=== PATIENT | female | born 1980 | race American Indian/Alaskan Native ===

== ENCOUNTER 2021-12-23 06:20 | Inpatient (IN) | payer MEDICAID ==
[2021-12-23 08:23] LABS: Basophils % (Auto) 0.1 % (0.0-1.8); Eosinophils % (Auto) 0.2 % (0.0-4.3); Hematocrit 49.5 % (30.3-42.9); Hemoglobin 15.9 gm/dl (10.1-14.3); Lymphocytes # (Auto) 1.5 K/mm3 (1.2-5.4); Lymphocytes % (Auto) 8.3 % (13.4-35.0); Mean Corpuscular HGB Conc 32 % (30-34); Mean Corpuscular Volume 87 fl (79-97); Monocytes # (Auto) 0.8 K/mm3 (0.0-0.8); Monocytes % (Auto) 4.1 % (0.0-7.3); Platelet Count 388 K/mm3 (140-440); Red Blood Count 5.71 M/mm3 (3.65-5.03); Red Cell Distribution Width 15.2 % (13.2-15.2)
[2021-12-23 09:17] LABS: Alanine Aminotransferase 218 units/L (7-56); Albumin 3.8 g/dL (3.9-5); Blood Urea Nitrogen 9 mg/dL (7-17); Hemolysis Index 18
[2021-12-23 09:22] LABS: BUN/Creatinine Ratio 15
[2021-12-23] MEDS ORDERED: SODIUM CHLORIDE 0.9% 1000 ML 1,000 ML IV ONE ×2 (09:27→16:17)
[2021-12-23] MEDS ORDERED: PIPERACILLIN/TAZOBACTAM 3.375 3.375 GM/50 ML BAG IV ONE (09:27)
[2021-12-23] MEDS ORDERED: ONDANSETRON 4 MG/2 ML INJ IV ONE ×2 (09:28→12:25)
[2021-12-23] MEDS ORDERED: MORPHINE 4 MG/1 ML INJ IV ONE (10:13)
--- NOTE | 2021-12-23 10:14 | Emergency Department Report ---
ED Abdominal Pain HPI - General Chief Complaint: Nausea/Vomiting/Diarrhea Stated Complaint: NAUSEA, VOMITING PUI?: No Time Seen by Provider: 12/23/21 08:08 Source: patient, EMS Mode of arrival: Stretcher Limitations: No Limitations - History of Present Illness Initial Comments: Patient is a 41-year-old female that comes to the emergency room with acute onset abdominal pain, nausea and vomiting yesterday. She is 2 weeks . She delivered at [facility]. She has no prior history of gallbladder disease or abdominal pain such as this. Her vaginal delivery was uneventful. She denies fever or chills. She does endorse right upper quadrant pain with nausea and vomiting. No diarrhea or constipation. Dlor-xgn-hhrwjqt medications did not relieve the pain. Patient is obese. She denies any medical history. Is not taking any home medications. Denies alcohol drugs and tobacco. Patient is not diabetic MD Complaint: abdominal pain -: Sudden, days(s) (2) Location: RUQ Migration to: no migration Severity: severe Severity scale (0 -10): 6 Quality: cramping, aching Consistency: constant Improves With: nothing Worsens With: nothing Associated Symptoms: nausea, vomiting - Related Data Allergies Allergy/AdvReac Type Severity Reaction Status Date / Time No Known Allergies Allergy Unverified 12/23/21 06:28 ED Review of Systems ROS: Stated complaint: NAUSEA, VOMITING Other details as noted in HPI Comment: All other systems reviewed and negative ED Past Medical Hx - Past Medical History Previous Medical History?: No - Surgical History Past Surgical History?: No - Family History Family history: no significant - Social History Smoking Status: Never Smoker Substance Use Type: None ED Physical Exam - General Limitations: No Limitations General appearance: alert, in no apparent distress - Head Head exam: Present: atraumatic, normocephalic - Eye Eye exam: Present: normal appearance - ENT ENT exam: Present: mucous membranes moist - Neck Neck exam: Present: normal inspection - Respiratory Respiratory exam: Present: normal lung sounds bilaterally. Absent: respiratory distress - Cardiovascular Cardiovascular Exam: Present: regular rate, normal rhythm. Absent: systolic murmur, diastolic murmur, rubs, gallop - GI/Abdominal GI/Abdominal exam: Present: soft, tenderness, normal bowel sounds - Extremities Exam Extremities exam: Present: normal inspection - Back Exam Back exam: Present: normal inspection - Neurological Exam Neurological exam: Present: alert, oriented X3 - Psychiatric Psychiatric exam: Present: normal affect, normal mood - Skin Skin exam: Present: warm, dry, intact, normal color. Absent: rash ED Course Vital Signs 12/23/21 12/23/21 06:27 10:08 Temperature 98.1 F 98.9 F Pulse Rate 90 92 H Respiratory 16 20 Rate Blood Pressure 160/110 140/80 [Right] O2 Sat by Pulse 98 98 Oximetry ED Medical Decision Making - Lab Data Result diagrams: 12/23/21 08:01 12/23/21 08:01 - Radiology Data Radiology results: report reviewed, image reviewed pancreatitis - Medical Decision Making Vital Signs 12/23/21 12/23/21 06:27 10:08 Temperature 98.1 F 98.9 F Pulse Rate 90 92 H Respiratory 16 20 Rate Blood Pressure 160/110 140/80 [Right] O2 Sat by Pulse 98 98 Oximetry Labs 12/23/21 12/23/21 08:01 08:01 WBC 18.2 H RBC 5.71 H Hgb 15.9 H Hct 49.5 H MCV 87 MCH 28 MCHC 32 RDW 15.2 Plt Count 388 Lymph % (Auto) 8.3 L Mckinley % (Auto) 4.1 Eos % (Auto) 0.2 Baso % (Auto) 0.1 Lymph # (Auto) 1.5 Mckinley # (Auto) 0.8 Eos # (Auto) 0.0 Baso # (Auto) 0.0 Seg Neutrophils % 87.3 H Seg Neutrophils # 15.9 H Sodium 141 Potassium 3.8 Chloride 109.7 H Carbon Dioxide 18 L Anion Gap 17 BUN 9 Creatinine 0.6 Estimated GFR > 60 BUN/Creatinine Ratio 15 Glucose 162 H Calcium 9.0 Total Bilirubin 2.20 H AST 291 H ALT 218 H Alkaline Phosphatase 143 H Total Protein 7.6 Albumin 3.8 L Albumin/Globulin Ratio 1.0 Lipase 4[address] Olsen. He is requesting an ultrasound. GEN surge has been consulted. Patient has been updated on plan for admission. IV, charge nurse asked to move patient to the main ER given her pending admission. Patient NPO. Vital signs are stable. Patient has received fluid per sepsis work-up. She also received IV Zofran. Patient received morphine and Zofran. She had no relief from that. She was then medicated with 0.5 of IV Dilaudid and 4 additional milligrams of Zofran and is got some pain relief. She is not actively vomiting. [address] Villanueva. She will come and evaluate the patient. - Differential Diagnosis acute abd ro infectious source- g stones/pancreatits/perf ulcer Critical care attestation.: If time is entered above; I have spent that time in minutes in the direct care of this critically ill patient, excluding procedure time. ED Disposition Clinical Impression: Abdominal pain Qualifiers: Abdominal location: right upper quadrant Qualified Code(s): R10.11 - Right upper quadrant pain Disposition: 02 [facility]ORT [facility]M [facility] Is pt being admited?: Yes Does the pt Need Aspirin: No Condition: Stable Referrals: KRISTIAN RITTER MD [Primary Care Provider] - 3-5 Days Time of Disposition: 13:39
[2021-12-23] MEDS ORDERED: HYDROmorphone 0.5 MG/0.5 ML INJ IV ONE ×2 (12:24→16:18)
--- NOTE | 2021-12-23 13:26 | Cat Scan Report ---
CT ABDOMEN AND PELVIS WITH INTRAVENOUS CONTRAST INDICATION / CLINICAL INFORMATION: Severe diffuse abdominal pain. Status post vaginal delivery 2 week s ago. TECHNIQUE: 100 cc Omnipaque [address] scans at this location are performed using CT d ose reduction for ALARA by means of automated exposure control. COMPARISON: None available. FINDINGS: ABDOMEN: There is generalized enlargement and edema throughout the pancreas. There is localized decre ased enhancement of the pancreas near the neck. No pancreatic duct dilatation is seen and I do not id entify a pancreatic mass. There is extensive peripancreatic fluid extending into both anterior parare nal spaces and extending inferiorly. There is also mild ascites. No organized fluid collection is see n. The gallbladder contains tiny gas bubbles anteriorly, probably representing gas-containing gallstones . The gallbladder is contracted. No bile duct dilatation is present. The liver, spleen, adrenal gland s, kidneys and bowel demonstrate no significant abnormality. No adenopathy is present. No acute vascu lar abnormality is seen. The lung bases are clear. PELVIS: There is an enlarged uterus. There is no evidence of an adnexal mass. Moderate pel rosa isela ascites is present. A normal appendix is seen and there is no evidence of diverticulitis. There i s mild diastases of the rectus sheath centered at the umbilicus without focal hernia. No acute osseou s abnormality is seen. IMPRESSION: 1. Moderately severe generalized acute pancreatitis. There is a possible element of necrosis near the pancreatic neck. Extensive peripancreatic fluid extending into both anterior pararenal spaces with a ssociated ascites. 2. Probable tiny gas containing stones floating in the anterior gallbladder. Signer Name: Shar Gannon MD Signed: 12/23/2021 1:22 PM Workstation Name: [id number]
[2021-12-23] MEDS ORDERED: SODIUM CHLORIDE 0.9% 1000 ML IV SOLN IV ONE (13:29)
[2021-12-23 14:45] LABS: INR 0.88 (0.87-1.13)
--- NOTE | 2021-12-23 14:53 | Ultrasound Report ---
US abdomen limited INDICATION: EVAL FOR G STONE- SEE CT COMPARISON: CT from earlier same day. FINDINGS: Pancreas: Not evaluated please see CT. Abdominal aorta: No significant abnormality. IVC: No significant abnormality identified. Liver: No significant abnormality identified. Gallbladder: Gallbladder is contracted and or gallstones. Bile ducts: The common bile duct measures 3 mm. Right Kidney: No significant abnormality. Additional findings: Small volume of free fluid. IMPRESSION: Gallstones are present. Signer Name: Marito Bae MD Signed: 12/23/2021 2:48 PM Workstation Name: [id number]
[2021-12-23 15:51] LABS: Bilirubin,Urine NEG (Negative); Blood,Urine SM (Negative); Color,Urine Amber (Yellow); Mucus,Urine FEW /HPF; Urobilinogen,Urine < 2.0 mg/dL (<2.0)
--- NOTE | 2021-12-23 16:27 | Consultation ---
History of Present Illness Consult date: 12/23/21 Reason for consult: gallstones Chief complaint: pancreatitis - History of present illness History of present illness: 41 yo F with no PMHx who presents to ER with 1 day history of upper abdominal pain starting in the right upper quadrant and radiating to the epigastrium and left upper quadrant. The pain is sharp and started suddenly. It gradually became worse prompting her to come to the emergency room. She has never had pain like this in the past. Pain medications given in the ER have helped with the pain. No exacerbating factors. Not associated with food. The patient also had nonbloody/nonbilious emesis at home. Her nausea is much improved and she has not had any further episodes of emesis. No fevers or chills. She denies alcohol intake. She is 2 weeks. She had a normal vaginal delivery without complications. Past History Past Medical History: No medical history Past Surgical History: No surgical history Social history: no significant social history Family history: hypertension Medications and Allergies Allergies Allergy/AdvReac Type Severity Reaction Status Date / Time No Known Allergies Allergy Unverified 12/23/21 06:28 Active Meds: Active Medications Hydromorphone HCl (Hydromorphone 1 Mg/1 Ml Inj) 0.5 mg IV Q3H PRN PRN Reason: Pain , Severe (7-10) Hydromorphone HCl (Hydromorphone 1 Mg/1 Ml Inj) 0.25 mg IV Q3H PRN PRN Reason: Pain, Moderate (4-6) Hydromorphone HCl (Hydromorphone 0.5 Mg/0.5 Ml Inj) 0.5 mg IV ONCE ONE Stop: 12/23/21 16:19 Sodium Chloride (Nacl 0.9% 1000 Ml) 1,000 mls @ 150 mls/hr IV ONCE ONE Stop: 12/23/21 22:56 Ketorolac Tromethamine (Ketorolac 30 Mg/1 Ml Inj) 30 mg IV Q8H SYMONE Stop: 12/28/21 16:59 Review of Systems All systems: negative (10 point ROS performed and negative except for that listed in HPI) Exam Vital Signs Temp Pulse Resp BP Pulse Ox 98.1 F 90 16 160/110 98 12/23/21 06:27 12/23/21 06:27 12/23/21 06:27 12/23/21 06:27 12/23/21 06:27 Narrative exam: Gen.: Awake, alert, oriented x3. No apparent distress ENT: Trachea midline. No lymphadenopathy. No scleral icterus or conjunctival pallor CV: S1, S2 present Respiratory: No audible wheezes Abdomen: Soft, mildly distended, tenderness to palpation in the right upper quadrant and epigastrium. Positive voluntary guarding. No rebound, rigidity. Extremities: No clubbing, cyanosis, edema Results - Labs 12/23/21 08:01 12/23/21 08:01 Abnormal lab results 12/23/21 12/23/21 12/23/21 Range/Units 08:01 08:01 13:09 WBC 18.2 H (4.5-11.0) K/mm3 RBC 5.71 H (3.65-5.03) M/mm3 Hgb 15.9 H (10.1-14.3) gm/dl Hct 49.5 H (30.3-42.9) % Lymph % (Auto) 8.3 L (13.4-35.0) % Seg Neutrophils % 87.3 H (40.0-70.0) % Seg Neutrophils # 15.9 H (1.8-7.7) K/mm3 Chloride 109.7 H (98-107) mmol/L Carbon Dioxide 18 L (22-30) mmol/L Glucose 162 H (65-100) mg/dL Lactic Acid 4.20 H* (0.7-2.0) mmol/L Total Bilirubin 2.20 H (0.1-1.2) mg/dL AST 291 H (5-40) units/L ALT 218 H (7-56) units/L Alkaline Phosphatase 143 H (35-129) units/L Albumin 3.8 L (3.9-5) g/dL Amylase (27-131) units/L Lipase 4755 H (13-60) units/L Ur Specific Roscoe (1.003-1.030) Urine WBC (Auto) (0.0-6.0) /HPF 12/23/21 12/23/21 Range/Units 13:55 Unknown WBC (4.5-11.0) K/mm3 RBC (3.65-5.03) M/mm3 Hgb (10.1-14.3) gm/dl Hct (30.3-42.9) % Lymph % (Auto) (13.4-35.0) % Seg Neutrophils % (40.0-70.0) % Seg Neutrophils # (1.8-7.7) K/mm3 Chloride (98-107) mmol/L Carbon Dioxide (22-30) mmol/L Glucose (65-100) mg/dL Lactic Acid (0.7-2.0) mmol/L Total Bilirubin (0.1-1.2) mg/dL AST (5-40) units/L ALT (7-56) units/L Alkaline Phosphatase (35-129) units/L Albumin (3.9-5) g/dL Amylase 1335 H (27-131) units/L Lipase (13-60) units/L Ur Specific Roscoe 1.035 H (1.003-1.030) Urine WBC (Auto) 8.0 H (0.0-6.0) /HPF Diabetes panel 12/23/21 Range/Units 08:01 Sodium 141 (137-145) mmol/L Potassium 3.8 (3.6-5.0) mmol/L Chloride 109.7 H (98-107) mmol/L Carbon Dioxide 18 L (22-30) mmol/L BUN 9 (7-17) mg/dL Creatinine 0.6 (0.6-1.2) mg/dL Glucose 162 H (65-100) mg/dL Calcium 9.0 (8.4-10.2) mg/dL AST 291 H (5-40) units/L ALT 218 H (7-56) units/L Alkaline Phosphatase 143 H (35-129) units/L Total Protein 7.6 (6.3-8.2) g/dL Albumin 3.8 L (3.9-5) g/dL Calcium panel 12/23/21 Range/Units 08:01 Calcium 9.0 (8.4-10.2) mg/dL Albumin 3.8 L (3.9-5) g/dL Pituitary panel 12/23/21 Range/Units 08:01 Sodium 141 (137-145) mmol/L Potassium 3.8 (3.6-5.0) mmol/L Chloride 109.7 H (98-107) mmol/L Carbon Dioxide 18 L (22-30) mmol/L BUN 9 (7-17) mg/dL Creatinine 0.6 (0.6-1.2) mg/dL Glucose 162 H (65-100) mg/dL Calcium 9.0 (8.4-10.2) mg/dL Adrenal panel 12/23/21 Range/Units 08:01 Sodium 141 (137-145) mmol/L Potassium 3.8 (3.6-5.0) mmol/L Chloride 109.7 H (98-107) mmol/L Carbon Dioxide 18 L (22-30) mmol/L BUN 9 (7-17) mg/dL Creatinine 0.6 (0.6-1.2) mg/dL Glucose 162 H (65-100) mg/dL Calcium 9.0 (8.4-10.2) mg/dL Total Bilirubin 2.20 H (0.1-1.2) mg/dL AST 291 H (5-40) units/L ALT 218 H (7-56) units/L Alkaline Phosphatase 143 H (35-129) units/L Total Protein 7.6 (6.3-8.2) g/dL Albumin 3.8 L (3.9-5) g/dL - Imaging CT scan - abdomen: report reviewed, image reviewed CT scan - pelvis: report reviewed, image reviewed US - abdomen: report reviewed, image reviewed Assessment and Plan 41-year-old female with 1. Acute pancreatitis likely biliary etiology 2. Gallstones Plan: 1. strict NPO 2. IVF = NS@150cc/hr. So far 1 L bolus of NS given in ER 3. prn pain control 4. prn nausea control 5. DVT ppx 6. CBC, CMP, lipase in am 7. If Bili, LFTs trend up, will need MRCP 8. empiric abx 9. Discussed etiology of pancreatitis, cholelithiasis with patient and at bedside. Explained the pancreatitis will first need to be treated with fluids, bowel rest, pain control. Once pancreatitis has improved, would recommend cholecystectomy. All questions answered. Will follow. Thank you for this consultation. Please call with any questions or concerns. Evaluation and treatment of this patient was during the time of the national and state emergency arising from COVID19 coronavirus pandemic. Treatment and procedures performed meet the current and available best practice and guidelines for patient during the COVID pandemic.
[2021-12-23] MEDS ORDERED: HYDROmorphone 1 MG/1 ML INJ IV PRN ×2 (16:30)
[2021-12-23] MEDS ORDERED: ONDANSETRON 4 MG/2 ML INJ IV PRN ×2 (17:00→21:23)
[2021-12-23] MEDS ORDERED: ACETAMINOPHEN 325 MG TAB PO PRN (21:23)
[2021-12-23] MEDS ORDERED: MAGNESIUM HYDROXIDE (MOM) ORAL LIQD UDC PO PRN (21:23)
--- NOTE | 2021-12-23 21:32 | History and Physical Report ---
History of Present Illness Date of examination: 12/23/21 Date of admission: 12/23/2021 Chief complaint: Abdomoinal Pain History of present illness: 41-year-old -Iranian female presenting in the emergency room today for evaluation of acute onset abdominal pain which started yesterday. Patient is 2 weeks . She denies any fever or chills, no chest pain or shortness of breath, no headache or dizziness and no diaphoresis. She has had associated nausea and vomiting but denies any diarrhea, no constipation no bright red blood per rectum, no hematuria or dysuria. Abdominal pain is more in the right upper abdomen and it has been constant. No known relieving or exacerbating factor. Work-up in the emergency room today, CT of the abdomen and pelvis shows severe generalized acute pancreatitis. There is a possibility of an element of necrosis near the pancreatic neck. Probable tiny gas containing stones floating in the anterior gallbladder. Ultrasound of the abdomen reveals: Gallstones Patient was evaluated by the general surgeon on-call. Recommendation is to make patient n.p.o., IV fluid and analgesic medication. Patient will be followed up closely Past History Past Medical History: No medical history Past Surgical History: No surgical history Social history: no significant social history Family history: hypertension Medications and Allergies Allergies Allergy/AdvReac Type Severity Reaction Status Date / Time No Known Allergies Allergy Unverified 12/23/21 06:28 Active Meds: Active Medications Acetaminophen (Acetaminophen 325 Mg Tab) 650 mg PO Q4H PRN PRN Reason: Pain MILD(1-3)/Fever >100.5/VELIZ Heparin Sodium (Porcine) (Heparin 5,000 Unit/1 Ml Vial) 5,000 unit SUB-Q Q8HR SYMONE Heparin Sodium (Porcine) (Heparin 5,000 Unit/1 Ml Vial) 5,000 unit SUB-Q Q8HR SYMONE Hydromorphone HCl (Hydromorphone 1 Mg/1 Ml Inj) 0.5 mg IV Q3H PRN PRN Reason: Pain , Severe (7-10) Hydromorphone HCl (Hydromorphone 1 Mg/1 Ml Inj) 0.25 mg IV Q3H PRN PRN Reason: Pain, Moderate (4-6) Last Admin: 12/23/21 19:09 Dose: 0.25 mg Sodium Chloride (Nacl 0.9% 1000 Ml) 1,000 mls @ 150 mls/hr IV ONCE ONE Stop: 12/23/21 22:56 Sodium Chloride (Nacl 0.9% 1000 Ml) 1,000 mls @ 125 mls/hr IV DIRECT SYMONE Ketorolac Tromethamine (Ketorolac 30 Mg/1 Ml Inj) 30 mg IV Q8H SYMONE Stop: 12/28/21 16:59 Magnesium Hydroxide (Magnesium Hydroxide (Mom) Oral Liqd Udc) 30 ml PO Q4H PRN PRN Reason: Constipation Morphine Sulfate (Morphine 2 Mg/1 Ml Inj) 2 mg IV Q4H PRN PRN Reason: Pain, Moderate (4-6) Morphine Sulfate (Morphine 4 Mg/1 Ml Inj) 4 mg IV Q4H PRN PRN Reason: Pain , Severe (7-10) Ondansetron HCl (Ondansetron 4 Mg/2 Ml Inj) 4 mg IV Q6H PRN PRN Reason: Nausea And Vomiting Ondansetron HCl (Ondansetron 4 Mg/2 Ml Inj) 4 mg IV Q8H PRN PRN Reason: Nausea And Vomiting Sodium Chloride (Sodium Chloride 0.9% 10 Ml Flush Syringe) 10 ml IV BID SYMONE Sodium Chloride (Sodium Chloride 0.9% 10 Ml Flush Syringe) 10 ml IV PRN PRN PRN Reason: LINE FLUSH Review of Systems Constitutional: no fever, no chills Ears, nose, mouth and throat: no nasal congestion, no sore throat Cardiovascular: no chest pain, no palpitations Respiratory: no cough, no shortness of breath Gastrointestinal: abdominal pain, nausea, vomiting, no BRBPR, no melena Genitourinary Female: no pelvic pain, no flank pain, no dysuria, no hematuria Musculoskeletal: no neck pain, no low back pain Integumentary: no rash, no pruritis Neurological: no headaches, no confusion Psychiatric: no anxiety, no depression Endocrine: no polyphagia, no polydipsia, no polyuria, no nocturia Exam - Constitutional Vitals: Temp Pulse Resp BP Pulse Ox 98.9 F 92 H 20 140/80 98 12/23/21 10:08 12/23/21 10:08 12/23/21 10:08 12/23/21 10:08 12/23/21 10:08 General appearance: Present: no acute distress, well-nourished - EENT Eyes: Present: PERRL, EOM intact. Absent: scleral icterus ENT: hearing intact, clear oral mucosa, dentition normal - Neck Neck: Present: supple, normal ROM - Respiratory Respiratory effort: normal Respiratory: bilateral: CTA - Cardiovascular Rhythm: regular Heart Sounds: Present: S1 & S2. Absent: systolic murmur, diastolic murmur, rub, click - Extremities Extremities: no ischemia, pulses intact, pulses symmetrical, No edema, normal temperature, normal color, Full ROM Peripheral Pulses: within normal limits - Abdominal General gastrointestinal: Present: soft, tender (Moderate tenderness in the right upper quadrant, minimal guarding, no rebound tenderness), non-distended, normal bowel sounds. Absent: mass - Integumentary Integumentary: Present: clear, warm, dry, normal turgor. Absent: rash - Musculoskeletal Musculoskeletal: strength equal bilaterally - Psychiatric Psychiatric: appropriate mood/affect, intact judgment & insight, memory intact, cooperative - Neurologic Neurologic: CNII-XII intact, no focal deficits, moves all extremities Results - Labs CBC & Chem 7: 12/23/21 08:01 12/23/21 08:01 Labs: Abnormal lab results 12/23/21 12/23/21 12/23/21 Range/Units 08:01 08:01 13:09 WBC 18.2 H (4.5-11.0) K/mm3 RBC 5.71 H (3.65-5.03) M/mm3 Hgb 15.9 H (10.1-14.3) gm/dl Hct 49.5 H (30.3-42.9) % Lymph % (Auto) 8.3 L (13.4-35.0) % Seg Neutrophils % 87.3 H (40.0-70.0) % Seg Neutrophils # 15.9 H (1.8-7.7) K/mm3 Chloride 109.7 H (98-107) mmol/L Carbon Dioxide 18 L (22-30) mmol/L Glucose 162 H (65-100) mg/dL Lactic Acid 4.20 H* (0.7-2.0) mmol/L Total Bilirubin 2.20 H (0.1-1.2) mg/dL AST 291 H (5-40) units/L ALT 218 H (7-56) units/L Alkaline Phosphatase 143 H (35-129) units/L Albumin 3.8 L (3.9-5) g/dL Amylase (27-131) units/L Lipase 4755 H (13-60) units/L Ur Specific Jackson (1.003-1.030) Urine WBC (Auto) (0.0-6.0) /HPF 12/23/21 12/23/21 Range/Units 13:55 Unknown WBC (4.5-11.0) K/mm3 RBC (3.65-5.03) M/mm3 Hgb (10.1-14.3) gm/dl Hct (30.3-42.9) % Lymph % (Auto) (13.4-35.0) % Seg Neutrophils % (40.0-70.0) % Seg Neutrophils # (1.8-7.7) K/mm3 Chloride (98-107) mmol/L Carbon Dioxide (22-30) mmol/L Glucose (65-100) mg/dL Lactic Acid (0.7-2.0) mmol/L Total Bilirubin (0.1-1.2) mg/dL AST (5-40) units/L ALT (7-56) units/L Alkaline Phosphatase (35-129) units/L Albumin (3.9-5) g/dL Amylase 1335 H (27-131) units/L Lipase (13-60) units/L Ur Specific Jackson 1.035 H (1.003-1.030) Urine WBC (Auto) 8.0 H (0.0-6.0) /HPF Assessment and Plan Assessment: 1. Abdominal pain 2. Acute pancreatitis 3. Patient is 2 weeks Plan: 1. Patient admitted and placed on IV fluid and IV analgesic medication 2. We will make patient n.p.o. 3. Consult placed to general surgeon for further evaluation and recommendation 4. Patient also placed on empiric IV antibiotics DVT prophylaxis: Subcutaneous heparin CODE STATUS: Full code
[2021-12-23] MEDS ORDERED: HEPARIN 5,000 UNIT/1 ML VIAL SUB-Q SCH (22:00)
[2021-12-23] MEDS: MORPHINE 4 MG/1 ML INJ IV PRN (22:51)
[2021-12-24] MEDS: HEPARIN 5,000 UNIT/1 ML VIAL SUB-Q SCH ×4 (00:09→22:31)
[2021-12-24] MEDS: SODIUM CHLORIDE 0.9% 1000 ML 1,000 ML IV SCH ×2 (00:22→06:39)
[2021-12-24] MEDS ORDERED: PIPERACILLIN/TAZOBACTAM 3.375 3.375 GM/50 ML BAG IV SCH (01:00)
[2021-12-24] MEDS: KETOROLAC 30 MG/1 ML INJ IV SCH ×3 (01:07→17:05)
[2021-12-24] MEDS: MORPHINE 4 MG/1 ML INJ IV PRN ×3 (05:32→22:30)
[2021-12-24 05:35] LABS: Basophils % (Auto) 0.1 % (0.0-1.8); Hematocrit 48.2 % (30.3-42.9); Hemoglobin 15.6 gm/dl (10.1-14.3); Lymphocytes # (Auto) 0.9 K/mm3 (1.2-5.4); Lymphocytes % (Auto) 6.7 % (13.4-35.0); Mean Corpuscular HGB Conc 32 % (30-34); Mean Corpuscular Volume 85 fl (79-97); Monocytes # (Auto) 1.3 K/mm3 (0.0-0.8); Monocytes % (Auto) 9.4 % (0.0-7.3); Platelet Count 273 K/mm3 (140-440); Red Blood Count 5.65 M/mm3 (3.65-5.03); Red Cell Distribution Width 15.3 % (13.2-15.2)
[2021-12-24 05:58] LABS: Alanine Aminotransferase 103 units/L (7-56); Albumin 3.4 g/dL (3.9-5); BUN/Creatinine Ratio 14; Blood Urea Nitrogen 11 mg/dL (7-17); Calcium 7.6 mg/dL (8.4-10.2); Hemolysis Index 26
[2021-12-24] MEDS: PIPERACIL/TAZOBACTA 4.5/NS 100 4.5 GM/100 ML VIAL IV SCH ×2 (09:27→17:04)
--- NOTE | 2021-12-24 12:06 | Progress Note ---
Assessment and Plan 41-year-old female with 1. Acute pancreatitis likely biliary etiology 2. Gallstones Plan: 1. NPO, may have ice chips 2. aggressive IVF 3. prn pain control 4. prn nausea control 5. DVT ppx 6. repeat CBC, CMP, lipase in am - Lipase, Bili, LFTs trending down. 7. empiric abx 8. Discussed etiology of pancreatitis, cholelithiasis with patient and at bedside. Explained the pancreatitis will first need to be treated with fluid s, bowel rest, pain control. Once pancreatitis has improved, would recommend cholecystectomy. All questions answered. Will continue to follow. Thank you for this consultation. Please call with any questions or concerns. Subjective Date of service: 12/24/21 Narrative: Pt seen and examined. c/o upper abdominal pain which is improved since yesterday and well managed with pain medication. NO n/v. Asking for ice chips. No f/c. Objective Vital Signs - 12hr 12/24/21 12/24/21 12/24/21 01:48 04:22 06:30 Temperature 99.0 F Pulse Rate 120 H 120 H Respiratory 20 20 Rate Blood Pressure 171/103 171/103 O2 Sat by Pulse 96 96 Oximetry - General physical appearance Narrative Exam: Gen.: Awake, alert, oriented x3. No apparent distress ENT: Trachea midline. No lymphadenopathy. No scleral icterus or conjunctival pallor CV: S1, S2 present Respiratory: No audible wheezes Abdomen: Soft, mildly distended, tenderness to palpation in the right upper quadrant and epigastrium. No rebound, rigidity, guarding. Extremities: No clubbing, cyanosis, edema - Labs 12/24/21 05:21 12/24/21 05:21 Diabetes panel 12/24/21 Range/Units 05:21 Sodium 143 (137-145) mmol/L Potassium 4.3 (3.6-5.0) mmol/L Chloride 112.3 H (98-107) mmol/L Carbon Dioxide 18 L (22-30) mmol/L BUN 11 (7-17) mg/dL Creatinine 0.8 (0.6-1.2) mg/dL Glucose 166 H (65-100) mg/dL Calcium 7.6 L D (8.4-10.2) mg/dL AST 41 H (5-40) units/L ALT 103 H (7-56) units/L Alkaline Phosphatase 115 (35-129) units/L Total Protein 6.5 (6.3-8.2) g/dL Albumin 3.4 L (3.9-5) g/dL Calcium panel 12/24/21 Range/Units 05:21 Calcium 7.6 L D (8.4-10.2) mg/dL Albumin 3.4 L (3.9-5) g/dL Pituitary panel 12/24/21 Range/Units 05:21 Sodium 143 (137-145) mmol/L Potassium 4.3 (3.6-5.0) mmol/L Chloride 112.3 H (98-107) mmol/L Carbon Dioxide 18 L (22-30) mmol/L BUN 11 (7-17) mg/dL Creatinine 0.8 (0.6-1.2) mg/dL Glucose 166 H (65-100) mg/dL Calcium 7.6 L D (8.4-10.2) mg/dL Adrenal panel 12/24/21 Range/Units 05:21 Sodium 143 (137-145) mmol/L Potassium 4.3 (3.6-5.0) mmol/L Chloride 112.3 H (98-107) mmol/L Carbon Dioxide 18 L (22-30) mmol/L BUN 11 (7-17) mg/dL Creatinine 0.8 (0.6-1.2) mg/dL Glucose 166 H (65-100) mg/dL Calcium 7.6 L D (8.4-10.2) mg/dL Total Bilirubin 1.80 H (0.1-1.2) mg/dL AST 41 H (5-40) units/L ALT 103 H (7-56) units/L Alkaline Phosphatase 115 (35-129) units/L Total Protein 6.5 (6.3-8.2) g/dL Albumin 3.4 L (3.9-5) g/dL
[2021-12-25] MEDS: KETOROLAC 30 MG/1 ML INJ IV SCH ×4 (01:16→17:50)
[2021-12-25] MEDS: PIPERACIL/TAZOBACTA 4.5/NS 100 4.5 GM/100 ML VIAL IV SCH ×3 (01:16→18:36)
[2021-12-25] MEDS: SODIUM CHLORIDE 0.9% 1000 ML 1,000 ML IV SCH ×2 (01:17→09:28)
[2021-12-25] MEDS: MORPHINE 2 MG/1 ML INJ IV PRN ×2 (05:32→16:28)
[2021-12-25] MEDS: HEPARIN 5,000 UNIT/1 ML VIAL SUB-Q SCH ×3 (05:32→21:26)
--- NOTE | 2021-12-25 07:26 | Progress Note ---
Assessment and Plan Assessment and Plan Assessment: 1. Abdominal pain 2. Acute pancreatitis--- improving lipase is decreased from [id number] 3. Patient is 2 weeks Plan: 1. Patient admitted and placed on IV fluid and IV analgesic medication 2. We will make patient n.p.o. 3. General surgery consult appreciated 4. Patient also placed on empiric IV antibiotics DVT prophylaxis: Subcutaneous heparin Subjective Date of service: 12/24/21 Principal diagnosis: Acute pancreatitis Interval history: 41-year-old -[place] female presenting in the emergency room today for evaluation of acute onset abdominal pain which started yesterday. Patient is 2 weeks . She denies any fever or chills, no chest pain or shortness of breath, no headache or dizziness and no diaphoresis. She has had associated nausea and vomiting but denies any diarrhea, no constipation no bright red blood per rectum, no hematuria or dysuria. Abdominal pain is more in the right upper abdomen and it has been constant. No known relieving or exacerbating factor. Work-up in the emergency room today, CT of the abdomen and pelvis shows severe generalized acute pancreatitis. There is a possibility of an element of necrosis near the pancreatic neck. Probable tiny gas containing stones floating in the anterior gallbladder. Ultrasound of the abdomen reveals: Gallstones Patient was evaluated by the general surgeon on-call. Recommendation is to make patient n.p.o., IV fluid and analgesic medication. Patient will be followed up closely 12/24/2021 Symptomatically better Lipase is improved from [id number] Objective - Constitutional Vitals: Vital Signs - 12hr 12/24/21 12/24/21 12/25/21 22:30 23:00 00:00 Temperature Pulse Rate 122 H Respiratory 18 16 Rate Blood Pressure O2 Sat by Pulse 98 Oximetry 12/25/21 12/25/21 12/25/21 00:45 01:00 01:16 Temperature 98.2 F Pulse Rate Respiratory 20 17 17 Rate Blood Pressure 117/73 O2 Sat by Pulse 98 Oximetry 12/25/21 12/25/21 12/25/21 01:46 05:30 05:32 Temperature 98.1 F Pulse Rate 109 H Respiratory 17 17 17 Rate Blood Pressure 143/86 O2 Sat by Pulse 97 Oximetry General appearance: Present: no acute distress, well-nourished - EENT Eyes: PERRL, EOM intact ENT: hearing intact, clear oral mucosa Ears: bilateral: normal - Neck Neck: supple, normal ROM - Respiratory Respiratory effort: normal Respiratory: bilateral: CTA - Breasts Breasts: normal - Cardiovascular Heart rate: 78 Rhythm: regular Heart Sounds: Present: S1 & S2. Absent: gallop, rub Extremities: pulses intact, No edema, normal color, Full ROM - Gastrointestinal General gastrointestinal: Present: soft, non-tender, tender, normal bowel sounds Localized gastrointestinal: tender: diffuse, guarding: diffuse - Genitourinary Female genitourinary: normal - Integumentary Integumentary: clear, warm, dry - Musculoskeletal Musculoskeletal: 1, strength equal bilaterally - Neurologic Neurologic: moves all extremities - Psychiatric Psychiatric: memory intact, appropriate mood/affect, intact judgment & insight - Labs CBC & Chem 7: 12/24/21 05:21 12/24/21 05:21
[2021-12-25 08:21] LABS: Alanine Aminotransferase 53 units/L (7-56); Albumin 2.8 g/dL (3.9-5); BUN/Creatinine Ratio 14; Blood Urea Nitrogen 13 mg/dL (7-17); Calcium 6.7 mg/dL (8.4-10.2); Hemolysis Index 181
[2021-12-25 10:13] LABS: Hemoglobin 12.6 gm/dl (10.1-14.3); Mean Corpuscular HGB Conc 32 % (30-34); Mean Corpuscular Volume 87 fl (79-97); Platelet Count 221 K/mm3 (140-440); Red Blood Count 4.62 M/mm3 (3.65-5.03)
--- NOTE | 2021-12-25 11:30 | Progress Note ---
Assessment and Plan Assessment and plan: 41-year-old female presented through the emergency department with a chief complaint of abdominal pain. CT scan of the abdomen pelvis revealed acute pancreatitis. Acute gallstone pancreatitis Cholelithiasis Abdominal pain 12/25/2021. Continue to keep patient n.p.o. per surgery recommendations. Aggr essive IV fluid hydration. Supportive care with pain and nausea control. Surgery reports that once the pancreatitis has improved, the patient will undergo cholecystectomy. History Interval history: No new issues overnight Hospitalist Physical - Constitutional Vitals: Temp Pulse Resp BP Pulse Ox 98.7 F 99 H 20 150/85 96 12/25/21 10:36 12/25/21 10:36 12/25/21 10:36 12/25/21 10:36 12/25/21 10:36 General appearance: Present: no acute distress, well-nourished - EENT Eyes: Present: PERRL, EOM intact ENT: hearing intact, clear oral mucosa, dentition normal - Neck Neck: Present: supple, normal ROM - Respiratory Respiratory effort: normal Respiratory: bilateral: CTA - Cardiovascular Rhythm: regular Heart Sounds: Present: S1 & S2. Absent: gallop, rub - Extremities Extremities: no ischemia, No edema, Full ROM - Abdominal General gastrointestinal: soft, non-tender, non-distended, normal bowel sounds - Integumentary Integumentary: Present: clear, warm, dry - Neurologic Neurologic: CNII-XII intact, moves all extremities Results - Labs CBC & Chem 7: 12/25/21 Unknown 12/25/21 07:43 Labs: Laboratory Last Values WBC 18.2 K/mm3 (4.5-11.0) H 12/25/21 Unknown RBC 4.62 M/mm3 (3.65-5.03) 12/25/21 Unknown Hgb 12.6 gm/dl (10.1-14.3) D 12/25/21 Unknown Hct 40.0 % (30.3-42.9) D 12/25/21 Unknown MCV 87 fl (79-97) 12/25/21 Unknown MCH 27 pg (28-32) L 12/25/21 Unknown MCHC 32 % (30-34) 12/25/21 Unknown RDW 15.0 % (13.2-15.2) 12/25/21 Unknown Plt Count 221 K/mm3 (140-440) 12/25/21 Unknown Lymph % (Auto) 6.7 % (13.4-35.0) L 12/24/21 05:21 Sac % (Auto) 9.4 % (0.0-7.3) H 12/24/21 05:21 Eos % (Auto) 0.0 % (0.0-4.3) 12/24/21 05:21 Baso % (Auto) 0.1 % (0.0-1.8) 12/24/21 05:21 Lymph # (Auto) 0.9 K/mm3 (1.2-5.4) L 12/24/21 05:21 Sac # (Auto) 1.3 K/mm3 (0.0-0.8) H 12/24/21 05:21 Eos # (Auto) 0.0 K/mm3 (0.0-0.4) 12/24/21 05:21 Baso # (Auto) 0.0 K/mm3 (0.0-0.1) 12/24/21 05:21 Seg Neutrophils % 83.8 % (40.0-70.0) H 12/24/21 05:21 Seg Neutrophils # 11.9 K/mm3 (1.8-7.7) H 12/24/21 05:21 PT 12.9 Sec. (12.2-14.9) 12/23/21 13:55 INR 0.88 (0.87-1.13) 12/23/21 13:55 Sodium 144 mmol/L (137-145) 12/25/21 07:43 Potassium 5.3 mmol/L (3.6-5.0) H D 12/25/21 07:43 Chloride 115.1 mmol/L (98-107) H 12/25/21 07:43 Carbon Dioxide 18 mmol/L (22-30) L 12/25/21 07:43 Anion Gap 16 mmol/L 12/25/21 07:43 BUN 13 mg/dL (7-17) 12/25/21 07:43 Creatinine 0.9 mg/dL (0.6-1.2) 12/25/21 07:43 Estimated GFR > 60 ml/min 12/25/21 07:43 BUN/Creatinine Ratio 14 % 12/25/21 07:43 Glucose 142 mg/dL (65-100) H 12/25/21 07:43 Lactic Acid 4.20 mmol/L (0.7-2.0) H* 12/23/21 13:09 Calcium 6.7 mg/dL (8.4-10.2) L 12/25/21 07:43 Total Bilirubin 1.30 mg/dL (0.1-1.2) H 12/25/21 07:43 AST 44 units/L (5-40) H 12/25/21 07:43 ALT 53 units/L (7-56) 12/25/21 07:43 Alkaline Phosphatase 83 units/L (35-129) 12/25/21 07:43 Total Protein 5.4 g/dL (6.3-8.2) L 12/25/21 07:43 Albumin 2.8 g/dL (3.9-5) L 12/25/21 07:43 Albumin/Globulin Ratio 1.1 % 12/25/21 07:43 Amylase 1154 units/L (27-131) H 12/25/21 07:43 Lipase 876 units/L (13-60) H 12/25/21 07:43 Urine Color Laure (Yellow) 12/23/21 Unknown Urine Turbidity Clear (Clear) 12/23/21 Unknown Urine pH 5.0 (5.0-7.0) 12/23/21 Unknown Ur Specific [place] 1.035 (1.003-1.030) H 12/23/21 Unknown Urine Protein 30 mg/dl mg/dL (Negative) 12/23/21 Unknown Urine Glucose (UA) 50 mg/dL (Negative) 12/23/21 Unknown Urine Ketones Neg mg/dL (Negative) 12/23/21 Unknown Urine Blood Sm (Negative) 12/23/21 Unknown Urine Nitrite Neg (Negative) 12/23/21 Unknown Urine Bilirubin Neg (Negative) 12/23/21 Unknown Urine Urobilinogen < 2.0 mg/dL (<2.0) 12/23/21 Unknown Ur Leukocyte Esterase Tr (Negative) 12/23/21 Unknown Urine WBC (Auto) 8.0 /HPF (0.0-6.0) H 12/23/21 Unknown Urine RBC (Auto) 5.0 /HPF (0.0-6.0) 12/23/21 Unknown U Epithel Cells (Auto) < 1.0 /HPF (0-13.0) 12/23/21 Unknown Urine Mucus Few /HPF 12/23/21 Unknown Microbiology: Microbiology 12/23/21 13:33 Peripheral/Venous Blood Culture - Preliminary NO GROWTH AFTER 24 HOURS 12/23/21 13:09 Peripheral/Venous Blood Culture - Preliminary NO GROWTH AFTER 24 HOURS Active Medications - Current Medications Current Medications: Generic Name Dose Route Start Last Admin Trade Name Freq PRN Reason Stop Dose Admin Acetaminophen 650 mg 12/23/21 21:23 Acetaminophen 325 Mg Tab PO Q4H PRN Pain MILD(1-3)/Fever >100.5/VELIZ Heparin Sodium (Porcine) 5,000 unit 12/23/21 22:00 12/25/21 05:32 Heparin 5,000 Unit/1 Ml Vial SUB-Q 5,000 unit Q8HR SYMONE Administration Sodium Chloride 1,000 mls @ 125 mls/hr 12/23/21 21:30 12/25/21 09:28 Nacl 0.9% 1000 Ml IV 125 mls/hr DIRECT SYMONE Administration Piperacillin Sod/Tazobactam Sod 4.5 gm in 100 mls @ 200 mls/hr 12/24/21 09:00 12/25/21 09:20 Zosyn/Ns 4.5gm/100ml IV 200 mls/hr Q8H SYMONE Administration Ketorolac Tromethamine 30 mg 12/23/21 17:00 12/25/21 09:19 Ketorolac 30 Mg/1 Ml Inj IV 12/28/21 16:59 30 mg Q8H SYMONE Administration Magnesium Hydroxide 30 ml 12/23/21 21:23 Magnesium Hydroxide (Mom) Oral Liqd Udc PO Q4H PRN Constipation Morphine Sulfate 2 mg 12/23/21 21:23 12/25/21 05:32 Morphine 2 Mg/1 Ml Inj IV 2 mg Q4H PRN Administration Pain, Moderate (4-6) Morphine Sulfate 4 mg 12/23/21 21:23 12/24/21 22:30 Morphine 4 Mg/1 Ml Inj IV 4 mg Q4H PRN Administration Pain , Severe (7-10) Ondansetron HCl 4 mg 12/23/21 21:23 12/24/21 00:21 Ondansetron 4 Mg/2 Ml Inj IV 4 mg Q8H PRN Administration Nausea And Vomiting Sodium Chloride 10 ml 12/23/21 22:00 12/25/21 09:22 Sodium Chloride 0.9% 10 Ml Flush Syringe IV 10 ml BID SYMONE Administration Sodium Chloride 10 ml 12/23/21 21:23 Sodium Chloride 0.9% 10 Ml Flush Syringe IV PRN PRN LINE FLUSH
--- NOTE | 2021-12-25 13:40 | Progress Note ---
Assessment and Plan 41-year-old female with 1. Acute pancreatitis likely biliary etiology 2. Gallstones Pt clinically improving. Afebrile. Plan: 1. Clear Liquid diet -> NPO p MN 2. aggressive IVF 3. prn pain control 4. prn nausea control 5. DVT ppx 6. repeat CBC, CMP, lipase in am - Lipase, Bili, LFTs trending down. Monitor Ca - corrected to 7.6. May need supplementation if drops further. 7. empiric abx 8. Discussed cholecystectomy with patient. Indication for procedure along with risks, benefits, alternatives discussed. All questions answered. Pt agreeable to CCY prior to dc. Will add tentatively for OR tomorrow. If labs continue to improve - will proceed to surgery. Will continue to follow. Thank you for this consultation. Please call with any questions or concerns. Subjective Date of service: 12/25/21 Narrative: Pt seen and examined. c/o abdominal soreness when getting out of bed but states pain is much better. No f/c. No n/v. Feeling hungry. Objective Vital Signs - 12hr 12/25/21 12/25/21 12/25/21 01:46 05:30 05:32 Temperature 98.1 F Pulse Rate 109 H Respiratory 17 17 17 Rate Blood Pressure 143/86 O2 Sat by Pulse 97 Oximetry 12/25/21 12/25/21 10:36 13:00 Temperature 98.7 F Pulse Rate 99 H Respiratory 20 17 Rate Blood Pressure 150/85 O2 Sat by Pulse 96 98 Oximetry - General physical appearance Narrative Exam: Gen.: Awake, alert, oriented x3. No apparent distress ENT: Trachea midline. No lymphadenopathy. No scleral icterus or conjunctival pallor CV: S1, S2 present Respiratory: No audible wheezes Abdomen: Soft, NT, mild epigastric TTP - much improved. No rebound, rigidity, guarding. Extremities: No clubbing, cyanosis, edema - Labs 12/25/21 Unknown 12/25/21 07:43 Diabetes panel 12/25/21 Range/Units 07:43 Sodium 144 (137-145) mmol/L Potassium 5.3 H D (3.6-5.0) mmol/L Chloride 115.1 H (98-107) mmol/L Carbon Dioxide 18 L (22-30) mmol/L BUN 13 (7-17) mg/dL Creatinine 0.9 (0.6-1.2) mg/dL Glucose 142 H (65-100) mg/dL Calcium 6.7 L (8.4-10.2) mg/dL AST 44 H (5-40) units/L ALT 53 (7-56) units/L Alkaline Phosphatase 83 (35-129) units/L Total Protein 5.4 L (6.3-8.2) g/dL Albumin 2.8 L (3.9-5) g/dL Calcium panel 12/25/21 Range/Units 07:43 Calcium 6.7 L (8.4-10.2) mg/dL Albumin 2.8 L (3.9-5) g/dL Pituitary panel 12/25/21 Range/Units 07:43 Sodium 144 (137-145) mmol/L Potassium 5.3 H D (3.6-5.0) mmol/L Chloride 115.1 H (98-107) mmol/L Carbon Dioxide 18 L (22-30) mmol/L BUN 13 (7-17) mg/dL Creatinine 0.9 (0.6-1.2) mg/dL Glucose 142 H (65-100) mg/dL Calcium 6.7 L (8.4-10.2) mg/dL Adrenal panel 12/25/21 Range/Units 07:43 Sodium 144 (137-145) mmol/L Potassium 5.3 H D (3.6-5.0) mmol/L Chloride 115.1 H (98-107) mmol/L Carbon Dioxide 18 L (22-30) mmol/L BUN 13 (7-17) mg/dL Creatinine 0.9 (0.6-1.2) mg/dL Glucose 142 H (65-100) mg/dL Calcium 6.7 L (8.4-10.2) mg/dL Total Bilirubin 1.30 H (0.1-1.2) mg/dL AST 44 H (5-40) units/L ALT 53 (7-56) units/L Alkaline Phosphatase 83 (35-129) units/L Total Protein 5.4 L (6.3-8.2) g/dL Albumin 2.8 L (3.9-5) g/dL
--- NOTE | 2021-12-25 14:20 | Anesthesia Consultation ---
Anesthesia Consult and Med Hx Date of service: 12/25/21 - Airway Anesthetic Teeth Evaluation: Good ROM Head & Neck: Adequate Mental/Hyoid Distance: Adequate Mallampati Class: Class III Intubation Access Assessment: Probably Good - Pulmonary Exam CTA: Yes - Cardiac Exam Cardiac Exam: RRR - Pre-Operative Health Status ASA Pre-Surgery Classification: ASA2 Proposed Anesthetic Plan: General - Other Systems Hx Obesity: Yes - Additional Comments Anesthesia Medical History Comments: Acute pancreatitis along with cholithiasis
[2021-12-26] MEDS: KETOROLAC 30 MG/1 ML INJ IV SCH ×3 (00:13→16:42)
[2021-12-26] MEDS: PIPERACIL/TAZOBACTA 4.5/NS 100 4.5 GM/100 ML VIAL IV SCH ×3 (00:14→16:42)
[2021-12-26] MEDS: SODIUM CHLORIDE 0.9% 1000 ML 1,000 ML IV SCH (03:11)
[2021-12-26] MEDS: MORPHINE 2 MG/1 ML INJ IV PRN (05:54)
[2021-12-26] MEDS ORDERED: SCOPOLAMINE TRANSDERMAL PATCH 72 HR TD NR (06:00)
[2021-12-26] MEDS ORDERED: MIDAZOLAM 2 MG/2 ML INJ IV NR (06:00)
[2021-12-26] MEDS: HEPARIN 5,000 UNIT/1 ML VIAL SUB-Q SCH ×3 (06:31→22:14)
[2021-12-26 06:59] LABS: Hematocrit 34.4 % (30.3-42.9); Hemoglobin 10.9 gm/dl (10.1-14.3); Mean Corpuscular HGB Conc 32 % (30-34); Mean Corpuscular Volume 86 fl (79-97); Platelet Count 203 K/mm3 (140-440); Red Cell Distribution Width 15.1 % (13.2-15.2)
[2021-12-26] MEDS ORDERED: LACTATED RINGERS 1,000 ML ONE (07:10)
[2021-12-26 07:14] LABS: Alanine Aminotransferase 36 units/L (7-56); Albumin 2.4 g/dL (3.9-5); BUN/Creatinine Ratio 11; Blood Urea Nitrogen 9 mg/dL (7-17); Calcium 6.9 mg/dL (8.4-10.2); Hemolysis Index 0
[2021-12-26] MEDS ORDERED: fentaNYL 100 MCG/2 ML INJ ONE (07:16)
[2021-12-26] MEDS ORDERED: propofoL 200 MG/20 ML VIAL IV ONE (07:16)
[2021-12-26] MEDS ORDERED: LIDOCAINE MPF (2%) 20 MG/1 ML VIAL 5 ML ONE (07:16)
[2021-12-26] MEDS ORDERED: ROCURONIUM 50 MG/5 ML INJ IV ONE (07:17)
[2021-12-26] MEDS ORDERED: KETAMINE/STERILE WATER 50 MG/ML SYRINGE ONE (07:17)
--- NOTE | 2021-12-26 07:27 | Anesthesia Day of Surgery ---
Anesthesia Day of Surgery - Day of Surgery Patient Examined: Yes Patient H&P Reviewed: Yes Patient is NPO: Yes
[2021-12-26] MEDS ORDERED: HYDROmorphone 0.5 MG/0.5 ML INJ IV PRN (07:28)
[2021-12-26] MEDS ORDERED: BUPIVACAINE/PF (0.5%) 5 MG/1 ML 30 ML VIAL INFILTRATI ONE ×2 (07:45→08:48)
[2021-12-26] MEDS ORDERED: LIDOCAINE (1%) 10 MG/1 ML VIAL 20 ML MDV ONE (07:45)
[2021-12-26] MEDS ORDERED: HYDROmorphone 1 MG/1 ML INJ ONE (08:44)
[2021-12-26] MEDS ORDERED: LIDOCAINE (1%) 10 MG/1 ML VIAL 20 ML MDV INFILTRATI ONE (08:48)
[2021-12-26] MEDS ORDERED: WATER FOR IRRIG STERILE 1,500 ML BOTTLE IR ONE (08:49)
[2021-12-26] MEDS ORDERED: SODIUM CHLORIDE 0.9% IRRIG SOLN 2000 ML IR ONE (08:49)
--- NOTE | 2021-12-26 09:17 | Operative Report ---
Operative Report Operative Report: Date of operation: 12/26/21 Preoperative diagnosis: Gallstone pancreatitis postOperative diagnoses: same as above Procedure: Laparoscopic cholecystectomy Surgeon: Telma Villanueva DO Cash [employer] Specialist surgeon: MD Krzysztof Anesthesia: Gen. endotracheal anesthesia, local Findings: Ascites, hepatomegaly Specimen: Gallbladder Estimated blood loss: <5cc Complications: None Disposition: Stable to PACU HPI an indication: 41-year-old female who presented to the emergency room with complaints of sudden onset, severe right upper quadrant and epigastric pain. Work-up revealed elevated LFTs, bilirubin, lipase, white count. Imaging included CT scan of the abdomen and pelvis and ultrasound of the abdomen both of which revealed cholelithiasis without cholecystitis or bile duct dilatation, moderate pancreatitis with ascites. The patient was treated accordingly with aggressive IV fluid hydration, bowel rest, pain control, antibiotics. Her bilirubin and LFTs trended down to normal and lipase significantly improved over the course of 72 hours. It was recommended that the patient undergo cholecystectomy prior to discharge as the source of her pancreatitis was biliary. All risks, benefits, alternatives to surgery were discussed in detail and questions answered. Patient agreeable to proceed with cholecystectomy. Con sent was obtained for laparoscopic, possible open cholecystectomy, possible cholangiogram. Procedure in detail: The patient was identified in the preoperative area and taken back to the operating room, placed on the operating room table in supine position. After anesthesia was induced, the abdomen was prepped and draped in usual sterile fashion and timeout was performed. Local anesthetic was i nfiltrated into all of the skin incision sites. A supraumbilical incision was made through which a Veress needle was inserted. The Veress needle positioning was confirmed using saline drop test and the abdomen insufflated to 15 mmHg. The Veress needle was then removed and a 5 mm Optiview trocar placed through this incision. The abdomen was inspected and there was no underlying injury to the abdominal structures. Upon initial examination there was serous ascites in the abdomen. The patient was placed in reverse Trendelenburg and tilted to the left. An additional 12 mm subxyphoid port, 5 mm right upper quadrant and 5 mm right lateral abdominal ports were placed under direct visualization. There was evidence of hepatomegaly. The gallbladder was identified and retracted cephalad and above the liver. The cystic duct and artery were carefully skeletonized. The medial and lateral peritoneal attachments to the gallbladder were dissected using a combination of blunt dissection with the [place] and hook electrocautery. The cystic duct and artery were the only 2 structures seen entering the gallbladder and the critical view was successfully obtained. 3 clips were placed on the proximal aspect of the cystic duct and 1 distally and this was transected in between the clips using EndoShears. 2 clips were placed on the proximal aspect of the cystic artery and 1 distally this was transected in between the clips using EndoShears. The gallbladder was dissected from the liver bed using electrocautery. The gallbladder was placed into a Endo Catch bag and removed from the abdomen via the 12mm port. The gallbladder fossa was then inspected and there was no identifiable bleeding or bile leakage. Hemostasis was ensured. The clips on the cystic duct and artery were visualized and intact. Ascites was aspirated from the abdomen using the suction auto body customizer. The patient was then placed into neutral position. The 12 mm port fascia was closed with interrupted 0 Vicryl suture using the Ariel Mann device. The remaining ports were removed under direct visualization. Skin incisions were closed with 4-0 Monocryl subcuticular stitches and skin glue. All skin incisions were once again infiltrated with local anesthetic. At the end case all sponge, instrument, sharp counts were correct 2. The patient was awoken from anesthesia, extubated, and taken to PACU in stable condition.
[2021-12-26] MEDS ORDERED: SUGAMMADEX SODIUM 200 MG/2 ML VIAL IV ONE (09:23)
[2021-12-26] MEDS ORDERED: fentaNYL 100 MCG/2 ML INJ IV PRN (09:50)
--- NOTE | 2021-12-26 10:28 | Progress Note ---
Assessment and Plan Assessment and plan: 41-year-old female presented through the emergency department with a chief complaint of abdominal pain. CT scan of the abdomen pelvis revealed acute pancreatitis. Acute gallstone pancreatitis Cholelithiasis Abdominal pain 12/25/2021. Continue to keep patient n.p.o. per surgery recommendations. Aggr essive IV fluid hydration. Supportive care with pain and nausea control. Surgery reports that once the pancreatitis has improved, the patient will undergo cholecystectomy. 12/26/2021. Patient for laparoscopic cholecystectomy this morning. I discussed the case with surgery who reports patient tolerated the procedure well. Continue pain control, wound care and supportive care. Anticipate discharge in a.m. History Interval history: No new issues overnight Hospitalist Physical - Constitutional Vitals: Temp Pulse Resp BP Pulse Ox 99.0 F 108 H 20 146/93 95 12/26/21 09:42 12/26/21 10:10 12/26/21 10:10 12/26/21 10:10 12/26/21 10:10 General appearance: Present: no acute distress, well-nourished - EENT Eyes: Present: PERRL, EOM intact ENT: hearing intact, clear oral mucosa, dentition normal - Neck Neck: Present: supple, normal ROM - Respiratory Respiratory effort: normal Respiratory: bilateral: CTA - Cardiovascular Rhythm: regular Heart Sounds: Present: S1 & S2. Absent: gallop, rub - Extremities Extremities: no ischemia, No edema, Full ROM - Abdominal General gastrointestinal: soft, non-tender, non-distended, normal bowel sounds - Integumentary Integumentary: Present: clear, warm, dry - Neurologic Neurologic: CNII-XII intact, moves all extremities Results - Labs CBC & Chem 7: 12/26/21 06:03 12/26/21 06:03 Labs: Laboratory Last Values WBC 17.8 K/mm3 (4.5-11.0) H 12/26/21 06:03 RBC 4.00 M/mm3 (3.65-5.03) 12/26/21 06:03 Hgb 10.9 gm/dl (10.1-14.3) 12/26/21 06:03 Hct 34.4 % (30.3-42.9) 12/26/21 06:03 MCV 86 fl (79-97) 12/26/21 06:03 MCH 27 pg (28-32) L 12/26/21 06:03 MCHC 32 % (30-34) 12/26/21 06:03 RDW 15.1 % (13.2-15.2) 12/26/21 06:03 Plt Count 203 K/mm3 (140-440) 12/26/21 06:03 Lymph % (Auto) 6.7 % (13.4-35.0) L 12/24/21 05:21 [place] % (Auto) 9.4 % (0.0-7.3) H 12/24/21 05:21 Eos % (Auto) 0.0 % (0.0-4.3) 12/24/21 05:21 Baso % (Auto) 0.1 % (0.0-1.8) 12/24/21 05:21 Lymph # (Auto) 0.9 K/mm3 (1.2-5.4) L 12/24/21 05:21 [place] # (Auto) 1.3 K/mm3 (0.0-0.8) H 12/24/21 05:21 Eos # (Auto) 0.0 K/mm3 (0.0-0.4) 12/24/21 05:21 Baso # (Auto) 0.0 K/mm3 (0.0-0.1) 12/24/21 05:21 Seg Neutrophils % 83.8 % (40.0-70.0) H 12/24/21 05:21 Seg Neutrophils # 11.9 K/mm3 (1.8-7.7) H 12/24/21 05:21 PT 12.9 Sec. (12.2-14.9) 12/23/21 13:55 INR 0.88 (0.87-1.13) 12/23/21 13:55 Sodium 144 mmol/L (137-145) 12/26/21 06:03 Potassium 3.3 mmol/L (3.6-5.0) L D 12/26/21 06:03 Chloride 112.6 mmol/L (98-107) H 12/26/21 06:03 Carbon Dioxide 21 mmol/L (22-30) L 12/26/21 06:03 Anion Gap 14 mmol/L 12/26/21 06:03 BUN 9 mg/dL (7-17) 12/26/21 06:03 Creatinine 0.8 mg/dL (0.6-1.2) 12/26/21 06:03 Estimated GFR > 60 ml/min 12/26/21 06:03 BUN/Creatinine Ratio 11 % 12/26/21 06:03 Glucose 137 mg/dL (65-100) H 12/26/21 06:03 Lactic Acid 4.20 mmol/L (0.7-2.0) H* 12/23/21 13:09 Calcium 6.9 mg/dL (8.4-10.2) L 12/26/21 06:03 Total Bilirubin 1.20 mg/dL (0.1-1.2) 12/26/21 06:03 AST 22 units/L (5-40) 12/26/21 06:03 ALT 36 units/L (7-56) 12/26/21 06:03 Alkaline Phosphatase 149 units/L (35-129) H 12/26/21 06:03 Total Protein 5.8 g/dL (6.3-8.2) L 12/26/21 06:03 Albumin 2.4 g/dL (3.9-5) L 12/26/21 06:03 Albumin/Globulin Ratio 0.7 % 12/26/21 06:03 Amylase 1154 units/L (27-131) H 12/25/21 07:43 Lipase 232 units/L (13-60) H 12/26/21 06:03 Urine Color Laure (Yellow) 12/23/21 Unknown Urine Turbidity Clear (Clear) 12/23/21 Unknown Urine pH 5.0 (5.0-7.0) 12/23/21 Unknown Ur Specific [place] 1.035 (1.003-1.030) H 12/23/21 Unknown Urine Protein 30 mg/dl mg/dL (Negative) 12/23/21 Unknown Urine Glucose (UA) 50 mg/dL (Negative) 12/23/21 Unknown Urine Ketones Neg mg/dL (Negative) 12/23/21 Unknown Urine Blood Sm (Negative) 12/23/21 Unknown Urine Nitrite Neg (Negative) 12/23/21 Unknown Urine Bilirubin Neg (Negative) 12/23/21 Unknown Urine Urobilinogen < 2.0 mg/dL (<2.0) 12/23/21 Unknown Ur Leukocyte Esterase Tr (Negative) 12/23/21 Unknown Urine WBC (Auto) 8.0 /HPF (0.0-6.0) H 12/23/21 Unknown Urine RBC (Auto) 5.0 /HPF (0.0-6.0) 12/23/21 Unknown U Epithel Cells (Auto) < 1.0 /HPF (0-13.0) 12/23/21 Unknown Urine Mucus Few /HPF 12/23/21 Unknown Microbiology: Microbiology 12/23/21 13:33 Peripheral/Venous Blood Culture - Preliminary NO GROWTH AFTER 48 HOURS 12/23/21 13:09 Peripheral/Venous Blood Culture - Preliminary NO GROWTH AFTER 48 HOURS [place]/IV: Voiding Method Toilet Active Medications - Current Medications Current Medications: Generic Name Dose Route Start Last Admin Trade Name Freq PRN Reason Stop Dose Admin Acetaminophen 650 mg 12/23/21 21:23 Acetaminophen 325 Mg Tab PO Q4H PRN Pain MILD(1-3)/Fever >100.5/VELIZ Hydrocodone Bitart/Acetaminophen 1 each 12/26/21 09:17 Hydrocodone/Acetaminophen 5-325 Mg Tab PO Q4H PRN Pain, Moderate (4-6) Fentanyl 50 mcg 12/26/21 09:50 Fentanyl 100 Mcg/2 Ml Inj IV 12/26/21 19:00 Q5MIN PRN Pain , Severe (7-10) Heparin Sodium (Porcine) 5,000 unit 12/23/21 22:00 12/26/21 06:31 Heparin 5,000 Unit/1 Ml Vial SUB-Q Not Given Q8HR SYMONE Sodium Chloride 1,000 mls @ 125 mls/hr 12/23/21 21:30 12/26/21 03:11 Nacl 0.9% 1000 Ml IV 125 mls/hr DIRECT SYMONE Administration Piperacillin Sod/Tazobactam Sod 4.5 gm in 100 mls @ 200 mls/hr 12/24/21 09:00 12/26/21 00:14 Zosyn/Ns 4.5gm/100ml IV 200 mls/hr Q8H SYMONE Administration Ketorolac Tromethamine 30 mg 12/23/21 17:00 12/26/21 00:13 Ketorolac 30 Mg/1 Ml Inj IV 12/28/21 16:59 30 mg Q8H SYMONE Administration Magnesium Hydroxide 30 ml 12/23/21 21:23 Magnesium Hydroxide (Mom) Oral Liqd Udc PO Q4H PRN Constipation Midazolam HCl 2 mg 12/26/21 06:00 Midazolam 2 Mg/2 Ml Inj IV 12/26/21 23:00 PREOP NR Morphine Sulfate 2 mg 12/23/21 21:23 12/26/21 05:54 Morphine 2 Mg/1 Ml Inj IV 2 mg Q4H PRN Administration Pain , Severe (7-10) Ondansetron HCl 4 mg 12/23/21 21:23 12/24/21 00:21 Ondansetron 4 Mg/2 Ml Inj IV 4 mg Q8H PRN Administration Nausea And Vomiting Scopolamine 1 each 12/26/21 06:00 Scopolamine Transdermal Patch 72 Hr TD 12/26/21 23:00 PREOP NR Sodium Chloride 10 ml 12/23/21 22:00 12/25/21 21:26 Sodium Chloride 0.9% 10 Ml Flush Syringe IV 10 ml BID SYMONE Administration Sodium Chloride 10 ml 12/23/21 21:23 Sodium Chloride 0.9% 10 Ml Flush Syringe IV PRN PRN LINE FLUSH
[2021-12-26 10:36] LABS: Basophils % (Manual) 0 % (0.0-1.8); Total Cells Counted 100
[2021-12-26 10:39] LABS: Ovalocytes Rare; Poikilocytosis 1+; Tear Drop Cells Few
[2021-12-26 10:40] LABS: Helmet Cells Rare; Large Platelets Rare; Platelet Estimate Consistent w Auto; Target Cells Rare
[2021-12-26] MEDS ORDERED: POTASSIUM CHLORIDE ER 20 MEQ TAB PO NR (11:00)
--- NOTE | 2021-12-26 11:13 | XRay Report ---
CHEST 1 VIEW 12/26/2021 10:15 AM INDICATION / CLINICAL INFORMATION: Tachypnea. COMPARISON: None available. FINDINGS: SUPPORT DEVICES: None. HEART / MEDIASTINUM: The heart size and pulmonary vasculature are normal. LUNGS / PLEURA: There is mild left basilar pleuroparenchymal opacity with obscuration of the hemidiap hragm. The right lung is clear. No pneumothorax. ADDITIONAL FINDINGS: No significant additional findings. IMPRESSION: Mild left basilar pleuroparenchymal disease. Signer Name: Shar Gannon MD Signed: 12/26/2021 11:08 AM Workstation Name: [id number]
--- NOTE | 2021-12-26 11:58 | Post Anesthesia Evaluation ---
- Post Anesthesia Evaluation Patient Participated: Yes Airway Patent: Yes Stable Respiratory Function: Yes Nausea/Vomiting: No Temp > 96.8F: Yes Pain Manageable: Yes Adequeate Hydration: Yes Anesthesia Complications: No Other Comments: On arrival to PACU, patient note to be tachypneic though otherwise without signss of distress, w/ SpO2 mid-90s on 100% NRB. Voluntary cough was suggestive of pulmonary congestion vs mucus (cough was "wet") so CXR ordered. No critical findings on CXR and patient improved clinically without additional intervention. At time of transfer to floor, patient had easy WOB w/ SpO2>95% on 2L NC.
[2021-12-26] MEDS: SODIUM CHLORIDE 0.45% 1000 ML 1,000 ML IV SCH (12:23)
[2021-12-26] MEDS ORDERED: NEOSTIGMINE 10MG/10 ML INJ MDV ONE (16:12)
[2021-12-26] MEDS ORDERED: KETOROLAC 30 MG/1 ML INJ ONE (16:12)
[2021-12-26] MEDS ORDERED: ONDANSETRON 4 MG/2 ML INJ ONE (16:12)
[2021-12-26] MEDS ORDERED: GLYCOPYRROLATE 0.4 MG/2 ML INJ ONE (16:12)
[2021-12-26] MEDS ORDERED: dexAMETHasone 20 MG/5 ML VIAL ONE (16:12)
[2021-12-27] MEDS: PIPERACIL/TAZOBACTA 4.5/NS 100 4.5 GM/100 ML VIAL IV SCH ×3 (00:09→16:59)
[2021-12-27] MEDS: KETOROLAC 30 MG/1 ML INJ IV SCH ×3 (00:14→16:58)
[2021-12-27] MEDS: SODIUM CHLORIDE 0.45% 1000 ML 1,000 ML IV SCH ×2 (02:26→17:02)
[2021-12-27 05:47] LABS: Alanine Aminotransferase 38 units/L (7-56); Albumin 2.4 g/dL (3.9-5); BUN/Creatinine Ratio 13; Bilirubin,Direct 0.3 mg/dL (0-0.2); Blood Urea Nitrogen 10 mg/dL (7-17); Calcium 7.2 mg/dL (8.4-10.2); Hemolysis Index 1
[2021-12-27 05:54] LABS: Hematocrit 31.4 % (30.3-42.9); Hemoglobin 9.9 gm/dl (10.1-14.3); Mean Corpuscular HGB Conc 32 % (30-34); Mean Corpuscular Volume 86 fl (79-97); Platelet Count 229 K/mm3 (140-440); Red Blood Count 3.67 M/mm3 (3.65-5.03); Red Cell Distribution Width 15.4 % (13.2-15.2)
[2021-12-27] MEDS: HEPARIN 5,000 UNIT/1 ML VIAL SUB-Q SCH ×3 (06:03→21:39)
[2021-12-27 09:00] LABS: Basophils % (Manual) 0 % (0.0-1.8); Poikilocytosis 1+; Tear Drop Cells 1+; Total Cells Counted 100
[2021-12-27 09:01] LABS: Large Platelets Few; Platelet Estimate Consistent w Auto
--- NOTE | 2021-12-27 10:26 | Progress Note ---
Assessment and Plan Postop day #1 status post laparoscopic cholecystectomy for gallstone pancreatitis. Patient is afebrile and stable and doing well however she had an uptick in her leukocytosis to 20. Recommend continuing antibiotics, and hydration. If white blood cell count starts trending down and patient continues to feel well may possibly discharge tomorrow on oral antibiotics. Subjective Date of service: 12/27/21 Narrative: No acute events overnight. Patient says that she feels well she tolerating her diet. Her pain is controlled. Objective Vital Signs - 12hr 12/27/21 12/27/21 12/27/21 01:00 04:28 08:16 Temperature 98.3 F Pulse Rate 74 Respiratory 16 Rate Blood Pressure 141/80 O2 Sat by Pulse 97 96 98 Oximetry - General physical appearance no distress, no pain - Eyes PERRL - ENT no hearing loss - Respiratory normal expansion, normal respiratory effort - Abdomen soft, other (Incisions clean dry and intact, appropriately tender to palpation.) - Neurologic normal coordination, normal sensation - Psychiatric oriented to time, oriented to person, oriented to place - Labs 12/27/21 05:03 12/27/21 05:03 Diabetes panel 12/27/21 Range/Units 05:03 Sodium 140 (137-145) mmol/L Potassium 3.6 (3.6-5.0) mmol/L Chloride 108.3 H (98-107) mmol/L Carbon Dioxide 23 (22-30) mmol/L BUN 10 (7-17) mg/dL Creatinine 0.8 (0.6-1.2) mg/dL Glucose 158 H (65-100) mg/dL Calcium 7.2 L (8.4-10.2) mg/dL AST 26 (5-40) units/L ALT 38 (7-56) units/L Alkaline Phosphatase 145 H (35-129) units/L Total Protein 5.7 L (6.3-8.2) g/dL Albumin 2.4 L (3.9-5) g/dL Calcium panel 12/27/21 Range/Units 05:03 Calcium 7.2 L (8.4-10.2) mg/dL Albumin 2.4 L (3.9-5) g/dL Pituitary panel 12/27/21 Range/Units 05:03 Sodium 140 (137-145) mmol/L Potassium 3.6 (3.6-5.0) mmol/L Chloride 108.3 H (98-107) mmol/L Carbon Dioxide 23 (22-30) mmol/L BUN 10 (7-17) mg/dL Creatinine 0.8 (0.6-1.2) mg/dL Glucose 158 H (65-100) mg/dL Calcium 7.2 L (8.4-10.2) mg/dL Adrenal panel 12/27/21 Range/Units 05:03 Sodium 140 (137-145) mmol/L Potassium 3.6 (3.6-5.0) mmol/L Chloride 108.3 H (98-107) mmol/L Carbon Dioxide 23 (22-30) mmol/L BUN 10 (7-17) mg/dL Creatinine 0.8 (0.6-1.2) mg/dL Glucose 158 H (65-100) mg/dL Calcium 7.2 L (8.4-10.2) mg/dL Total Bilirubin 0.50 (0.1-1.2) mg/dL AST 26 (5-40) units/L ALT 38 (7-56) units/L Alkaline Phosphatase 145 H (35-129) units/L Total Protein 5.7 L (6.3-8.2) g/dL Albumin 2.4 L (3.9-5) g/dL
--- NOTE | 2021-12-27 10:55 | Progress Note ---
Hospitalist Physical - Constitutional Vitals: Temp Pulse Resp BP Pulse Ox 98.3 F 74 16 141/80 98 12/27/21 04:28 12/27/21 04:28 12/27/21 04:28 12/27/21 04:28 12/27/21 08:16 General appearance: Present: no acute distress, well-nourished Results - Labs CBC & Chem 7: 12/27/21 05:03 12/27/21 05:03 Labs: Laboratory Last Values WBC 20.8 K/mm3 (4.5-11.0) H 12/27/21 05:03 RBC 3.67 M/mm3 (3.65-5.03) 12/27/21 05:03 Hgb 9.9 gm/dl (10.1-14.3) L 12/27/21 05:03 Hct 31.4 % (30.3-42.9) 12/27/21 05:03 MCV 86 fl (79-97) 12/27/21 05:03 MCH 27 pg (28-32) L 12/27/21 05:03 MCHC 32 % (30-34) 12/27/21 05:03 RDW 15.4 % (13.2-15.2) H 12/27/21 05:03 Plt Count 229 K/mm3 (140-440) 12/27/21 05:03 Lymph % (Auto) 6.7 % (13.4-35.0) L 12/24/21 05:21 [place] % (Auto) 9.4 % (0.0-7.3) H 12/24/21 05:21 Eos % (Auto) 0.0 % (0.0-4.3) 12/24/21 05:21 Baso % (Auto) 0.1 % (0.0-1.8) 12/24/21 05:21 Lymph # (Auto) 0.9 K/mm3 (1.2-5.4) L 12/24/21 05:21 [place] # (Auto) 1.3 K/mm3 (0.0-0.8) H 12/24/21 05:21 Eos # (Auto) 0.0 K/mm3 (0.0-0.4) 12/24/21 05:21 Baso # (Auto) 0.0 K/mm3 (0.0-0.1) 12/24/21 05:21 Add Manual Diff Complete 12/27/21 05:03 Total Counted 100 12/27/21 05:03 Seg Neutrophils % 83.8 % (40.0-70.0) H 12/24/21 05:21 Seg Neuts % (Manual) 94.0 % (40.0-70.0) H 12/27/21 05:03 Band Neutrophils % 0 % 12/27/21 05:03 Lymphocytes % (Manual) 4.0 % (13.4-35.0) L 12/27/21 05:03 Reactive Lymphs % (Man) 0 % 12/27/21 05:03 Monocytes % (Manual) 1.0 % (0.0-7.3) 12/27/21 05:03 Eosinophils % (Manual) 1.0 % (0.0-4.3) 12/27/21 05:03 Basophils % (Manual) 0 % (0.0-1.8) 12/27/21 05:03 Metamyelocytes % 0 % 12/27/21 05:03 Myelocytes % 0 % 12/27/21 05:03 Promyelocytes % 0 % 12/27/21 05:03 Blast Cells % 0 % 12/27/21 05:03 Nucleated RBC % Not Reportable 12/27/21 05:03 Seg Neutrophils # 11.9 K/mm3 (1.8-7.7) H 12/24/21 05:21 Seg Neutrophils # Man 19.6 K/mm3 (1.8-7.7) H 12/27/21 05:03 Band Neutrophils # 0.0 K/mm3 12/27/21 05:03 Lymphocytes # (Manual) 0.8 K/mm3 (1.2-5.4) L 12/27/21 05:03 Abs React Lymphs (Man) 0.0 K/mm3 12/27/21 05:03 Monocytes # (Manual) 0.2 K/mm3 (0.0-0.8) 12/27/21 05:03 Eosinophils # (Manual) 0.2 K/mm3 (0.0-0.4) 12/27/21 05:03 Basophils # (Manual) 0.0 K/mm3 (0.0-0.1) 12/27/21 05:03 Metamyelocytes # 0.0 K/mm3 12/27/21 05:03 Myelocytes # 0.0 K/mm3 12/27/21 05:03 Promyelocytes # 0.0 K/mm3 12/27/21 05:03 Blast Cells # 0.0 K/mm3 12/27/21 05:03 WBC Morphology Not Reportable 12/27/21 05:03 Hypersegmented Neuts Not Reportable 12/27/21 05:03 Hyposegmented Neuts Not Reportable 12/27/21 05:03 Hypogranular Neuts Not Reportable 12/27/21 05:03 Smudge Cells Not Reportable 12/27/21 05:03 Toxic Granulation Not Reportable 12/27/21 05:03 Toxic Vacuolation Not Reportable 12/27/21 05:03 Dohle Bodies Not Reportable 12/27/21 05:03 Pelger-Huet Anomaly Not Reportable 12/27/21 05:03 Roger Rods Not Reportable 12/27/21 05:03 Platelet Estimate Consistent w auto 12/27/21 05:03 Clumped Platelets Not Reportable 12/27/21 05:03 Plt Clumps, EDTA Not Reportable 12/27/21 05:03 Large Platelets Few 12/27/21 05:03 Giant Platelets Not Reportable 12/27/21 05:03 Platelet Satelliting Not Reportable 12/27/21 05:03 Plt Morphology Comment Not Reportable 12/27/21 05:03 RBC Morphology Not Reportable 12/27/21 05:03 Dimorphic RBCs Not Reportable 12/27/21 05:03 Polychromasia Not Reportable 12/27/21 05:03 Hypochromasia Not Reportable 12/27/21 05:03 Poikilocytosis 1+ 12/27/21 05:03 Anisocytosis Not Reportable 12/27/21 05:03 Microcytosis Not Reportable 12/27/21 05:03 Macrocytosis Not Reportable 12/27/21 05:03 Spherocytes Not Reportable 12/27/21 05:03 Pappenheimer Bodies Not Reportable 12/27/21 05:03 Sickle Cells Not Reportable 12/27/21 05:03 Target Cells Not Reportable 12/27/21 05:03 Tear Drop Cells 1+ 12/27/21 05:03 Ovalocytes Not Reportable 12/27/21 05:03 Helmet Cells Not Reportable 12/27/21 05:03 Tillman-[place] Bodies Not Reportable 12/27/21 05:03 [place] Rings Not Reportable 12/27/21 05:03 [place] Cells Not Reportable 12/27/21 05:03 Bite Cells Not Reportable 12/27/21 05:03 Crenated Cell Not Reportable 12/27/21 05:03 Elliptocytes Not Reportable 12/27/21 05:03 Acanthocytes (Spur) Not Reportable 12/27/21 05:03 Rouleaux Not Reportable 12/27/21 05:03 Hemoglobin C Crystals Not Reportable 12/27/21 05:03 Schistocytes Not Reportable 12/27/21 05:03 Malaria parasites Not Reportable 12/27/21 05:03 Marvin Bodies Not Reportable 12/27/21 05:03 Hem Pathologist Commnt No 12/27/21 05:03 PT 12.9 Sec. (12.2-14.9) 12/23/21 13:55 INR 0.88 (0.87-1.13) 12/23/21 13:55 Sodium 140 mmol/L (137-145) 12/27/21 05:03 Potassium 3.6 mmol/L (3.6-5.0) 12/27/21 05:03 Chloride 108.3 mmol/L (98-107) H 12/27/21 05:03 Carbon Dioxide 23 mmol/L (22-30) 12/27/21 05:03 Anion Gap 12 mmol/L 12/27/21 05:03 BUN 10 mg/dL (7-17) 12/27/21 05:03 Creatinine 0.8 mg/dL (0.6-1.2) 12/27/21 05:03 Estimated GFR > 60 ml/min 12/27/21 05:03 BUN/Creatinine Ratio 13 % 12/27/21 05:03 Glucose 158 mg/dL (65-100) H 12/27/21 05:03 Lactic Acid 4.20 mmol/L (0.7-2.0) H* 12/23/21 13:09 Calcium 7.2 mg/dL (8.4-10.2) L 12/27/21 05:03 Total Bilirubin 0.50 mg/dL (0.1-1.2) 12/27/21 05:03 Direct Bilirubin 0.3 mg/dL (0-0.2) H 12/27/21 05:03 Indirect Bilirubin 0.2 mg/dL 12/27/21 05:03 AST 26 units/L (5-40) 12/27/21 05:03 ALT 38 units/L (7-56) 12/27/21 05:03 Alkaline Phosphatase 145 units/L (35-129) H 12/27/21 05:03 Total Protein 5.7 g/dL (6.3-8.2) L 12/27/21 05:03 Albumin 2.4 g/dL (3.9-5) L 12/27/21 05:03 Albumin/Globulin Ratio 0.7 % 12/27/21 05:03 Amylase 1154 units/L (27-131) H 12/25/21 07:43 Lipase 52 units/L (13-60) 12/27/21 05:03 Urine Color Laure (Yellow) 12/23/21 Unknown Urine Turbidity Clear (Clear) 12/23/21 Unknown Urine pH 5.0 (5.0-7.0) 12/23/21 Unknown Ur Specific [place] 1.035 (1.003-1.030) H 12/23/21 Unknown Urine Protein 30 mg/dl mg/dL (Negative) 12/23/21 Unknown Urine Glucose (UA) 50 mg/dL (Negative) 12/23/21 Unknown Urine Ketones Neg mg/dL (Negative) 12/23/21 Unknown Urine Blood Sm (Negative) 12/23/21 Unknown Urine Nitrite Neg (Negative) 12/23/21 Unknown Urine Bilirubin Neg (Negative) 12/23/21 Unknown Urine Urobilinogen < 2.0 mg/dL (<2.0) 12/23/21 Unknown Ur Leukocyte Esterase Tr (Negative) 12/23/21 Unknown Urine WBC (Auto) 8.0 /HPF (0.0-6.0) H 12/23/21 Unknown Urine RBC (Auto) 5.0 /HPF (0.0-6.0) 12/23/21 Unknown U Epithel Cells (Auto) < 1.0 /HPF (0-13.0) 12/23/21 Unknown Urine Mucus Few /HPF 12/23/21 Unknown Microbiology: Microbiology 12/23/21 13:33 Peripheral/Venous Blood Culture - Preliminary NO GROWTH AFTER 72 HOURS 12/23/21 13:09 Peripheral/Venous Blood Culture - Preliminary NO GROWTH AFTER 72 HOURS [place]/IV: Voiding Method Toilet Active Medications - Current Medications Current Medications: Generic Name Dose Route Start Last Admin Trade Name Freq PRN Reason Stop Dose Admin Acetaminophen 650 mg 12/23/21 21:23 Acetaminophen 325 Mg Tab PO Q4H PRN Pain MILD(1-3)/Fever >100.5/VELIZ Hydrocodone Bitart/Acetaminophen 1 each 12/26/21 09:17 Hydrocodone/Acetaminophen 5-325 Mg Tab PO Q4H PRN Pain, Moderate (4-6) Heparin Sodium (Porcine) 5,000 unit 12/23/21 22:00 12/27/21 06:03 Heparin 5,000 Unit/1 Ml Vial SUB-Q 5,000 unit Q8HR SYMONE Administration Piperacillin Sod/Tazobactam Sod 4.5 gm in 100 mls @ 200 mls/hr 12/24/21 09:00 12/27/21 08:47 Zosyn/Ns 4.5gm/100ml IV 200 mls/hr Q8H SYMONE Administration Sodium Chloride 1,000 mls @ 75 mls/hr 12/26/21 12:00 12/27/21 02:26 Nacl 0.45% 1000 Ml IV 75 mls/hr DIRECT SYMONE Administration Ketorolac Tromethamine 30 mg 12/23/21 17:00 12/27/21 08:47 Ketorolac 30 Mg/1 Ml Inj IV 12/28/21 16:59 30 mg Q8H SYMONE Administration Magnesium Hydroxide 30 ml 12/23/21 21:23 Magnesium Hydroxide (Mom) Oral Liqd Udc PO Q4H PRN Constipation Morphine Sulfate 2 mg 12/23/21 21:23 12/26/21 05:54 Morphine 2 Mg/1 Ml Inj IV 2 mg Q4H PRN Administration Pain , Severe (7-10) Ondansetron HCl 4 mg 12/23/21 21:23 12/24/21 00:21 Ondansetron 4 Mg/2 Ml Inj IV 4 mg Q8H PRN Administration Nausea And Vomiting Sodium Chloride 10 ml 12/23/21 22:00 12/27/21 10:28 Sodium Chloride 0.9% 10 Ml Flush Syringe IV 10 ml BID SYMONE Administration Sodium Chloride 10 ml 12/23/21 21:23 Sodium Chloride 0.9% 10 Ml Flush Syringe IV PRN PRN LINE FLUSH
--- NOTE | 2021-12-27 11:01 | Discharge Summary ---
Providers - Providers Date of Admission: 12/23/21 21:23 Date of discharge: 12/27/21 Attending physician: JEREMI GROSSMAN 12/23/21 13:47 Consult to Physician [CONS] Urgent Comment: Consulting Provider: BIANKA BERG Physician Instructions: Reason For Exam: ABD PAIN Primary care physician: KRISTIAN RITTER Hospitalization Reason for admission: Gallstone pancreatitis Condition: Stable Disposition: 30 STILL A PATIENT Exam - Constitutional Vitals: Temp Pulse Resp BP Pulse Ox 98.3 F 74 16 141/80 98 12/27/21 04:28 12/27/21 04:28 12/27/21 04:28 12/27/21 04:28 12/27/21 08:16 Plan Follow up with: KRISTIAN RITTER MD [Primary Care Provider] - 3-5 Days
--- NOTE | 2021-12-27 11:41 | Progress Note ---
Assessment and Plan Assessment and plan: 41-year-old female presented through the emergency department with a chief complaint of abdominal pain. CT scan of the abdomen pelvis revealed acute pancreatitis. Acute gallstone pancreatitis Cholelithiasis Abdominal pain 12/25/2021. Continue to keep patient n.p.o. per surgery recommendations. Aggr essive IV fluid hydration. Supportive care with pain and nausea control. Surgery reports that once the pancreatitis has improved, the patient will undergo cholecystectomy. 12/26/2021. Patient for laparoscopic cholecystectomy this morning. I discussed the case with surgery who reports patient tolerated the procedure well. Continue pain control, wound care and supportive care. Anticipate discharge in a.m. 12/27/2021. Patient is s/p laparoscopic cholecystectomy yesterday. I spoke with Dr. Villanueva who anticipated discharge today. However, patient with significant leukocytosis with WBC 20.8 patient does not appear to be toxic. Continue Zosyn for now. History Interval history: No new issues overnight Hospitalist Physical - Constitutional Vitals: Temp Pulse Resp BP Pulse Ox 98.3 F 74 16 141/80 98 12/27/21 04:28 12/27/21 04:28 12/27/21 04:28 12/27/21 04:28 12/27/21 08:16 General appearance: Present: no acute distress, well-nourished - EENT Eyes: Present: PERRL, EOM intact ENT: hearing intact, clear oral mucosa, dentition normal - Neck Neck: Present: supple, normal ROM - Respiratory Respiratory effort: normal Respiratory: bilateral: CTA - Cardiovascular Rhythm: regular Heart Sounds: Present: S1 & S2. Absent: gallop, rub - Extremities Extremities: no ischemia, No edema, Full ROM - Abdominal General gastrointestinal: soft, non-tender, non-distended, normal bowel sounds - Integumentary Integumentary: Present: clear, warm, dry - Neurologic Neurologic: CNII-XII intact, moves all extremities Results - Labs CBC & Chem 7: 12/27/21 05:03 12/27/21 05:03 Labs: Laboratory Last Values WBC 20.8 K/mm3 (4.5-11.0) H 12/27/21 05:03 RBC 3.67 M/mm3 (3.65-5.03) 12/27/21 05:03 Hgb 9.9 gm/dl (10.1-14.3) L 12/27/21 05:03 Hct 31.4 % (30.3-42.9) 12/27/21 05:03 MCV 86 fl (79-97) 12/27/21 05:03 MCH 27 pg (28-32) L 12/27/21 05:03 MCHC 32 % (30-34) 12/27/21 05:03 RDW 15.4 % (13.2-15.2) H 12/27/21 05:03 Plt Count 229 K/mm3 (140-440) 12/27/21 05:03 Lymph % (Auto) 6.7 % (13.4-35.0) L 12/24/21 05:21 [place] % (Auto) 9.4 % (0.0-7.3) H 12/24/21 05:21 Eos % (Auto) 0.0 % (0.0-4.3) 12/24/21 05:21 Baso % (Auto) 0.1 % (0.0-1.8) 12/24/21 05:21 Lymph # (Auto) 0.9 K/mm3 (1.2-5.4) L 12/24/21 05:21 [place] # (Auto) 1.3 K/mm3 (0.0-0.8) H 12/24/21 05:21 Eos # (Auto) 0.0 K/mm3 (0.0-0.4) 12/24/21 05:21 Baso # (Auto) 0.0 K/mm3 (0.0-0.1) 12/24/21 05:21 Add Manual Diff Complete 12/27/21 05:03 Total Counted 100 12/27/21 05:03 Seg Neutrophils % 83.8 % (40.0-70.0) H 12/24/21 05:21 Seg Neuts % (Manual) 94.0 % (40.0-70.0) H 12/27/21 05:03 Band Neutrophils % 0 % 12/27/21 05:03 Lymphocytes % (Manual) 4.0 % (13.4-35.0) L 12/27/21 05:03 Reactive Lymphs % (Man) 0 % 12/27/21 05:03 Monocytes % (Manual) 1.0 % (0.0-7.3) 12/27/21 05:03 Eosinophils % (Manual) 1.0 % (0.0-4.3) 12/27/21 05:03 Basophils % (Manual) 0 % (0.0-1.8) 12/27/21 05:03 Metamyelocytes % 0 % 12/27/21 05:03 Myelocytes % 0 % 12/27/21 05:03 Promyelocytes % 0 % 12/27/21 05:03 Blast Cells % 0 % 12/27/21 05:03 Nucleated RBC % Not Reportable 12/27/21 05:03 Seg Neutrophils # 11.9 K/mm3 (1.8-7.7) H 12/24/21 05:21 Seg Neutrophils # Man 19.6 K/mm3 (1.8-7.7) H 12/27/21 05:03 Band Neutrophils # 0.0 K/mm3 12/27/21 05:03 Lymphocytes # (Manual) 0.8 K/mm3 (1.2-5.4) L 12/27/21 05:03 Abs React Lymphs (Man) 0.0 K/mm3 12/27/21 05:03 Monocytes # (Manual) 0.2 K/mm3 (0.0-0.8) 12/27/21 05:03 Eosinophils # (Manual) 0.2 K/mm3 (0.0-0.4) 12/27/21 05:03 Basophils # (Manual) 0.0 K/mm3 (0.0-0.1) 12/27/21 05:03 Metamyelocytes # 0.0 K/mm3 12/27/21 05:03 Myelocytes # 0.0 K/mm3 12/27/21 05:03 Promyelocytes # 0.0 K/mm3 12/27/21 05:03 Blast Cells # 0.0 K/mm3 12/27/21 05:03 WBC Morphology Not Reportable 12/27/21 05:03 Hypersegmented Neuts Not Reportable 12/27/21 05:03 Hyposegmented Neuts Not Reportable 12/27/21 05:03 Hypogranular Neuts Not Reportable 12/27/21 05:03 Smudge Cells Not Reportable 12/27/21 05:03 Toxic Granulation Not Reportable 12/27/21 05:03 Toxic Vacuolation Not Reportable 12/27/21 05:03 Dohle Bodies Not Reportable 12/27/21 05:03 Pelger-Huet Anomaly Not Reportable 12/27/21 05:03 Roger Rods Not Reportable 12/27/21 05:03 Platelet Estimate Consistent w auto 12/27/21 05:03 Clumped Platelets Not Reportable 12/27/21 05:03 Plt Clumps, EDTA Not Reportable 12/27/21 05:03 Large Platelets Few 12/27/21 05:03 Giant Platelets Not Reportable 12/27/21 05:03 Platelet Satelliting Not Reportable 12/27/21 05:03 Plt Morphology Comment Not Reportable 12/27/21 05:03 RBC Morphology Not Reportable 12/27/21 05:03 Dimorphic RBCs Not Reportable 12/27/21 05:03 Polychromasia Not Reportable 12/27/21 05:03 Hypochromasia Not Reportable 12/27/21 05:03 Poikilocytosis 1+ 12/27/21 05:03 Anisocytosis Not Reportable 12/27/21 05:03 Microcytosis Not Reportable 12/27/21 05:03 Macrocytosis Not Reportable 12/27/21 05:03 Spherocytes Not Reportable 12/27/21 05:03 Pappenheimer Bodies Not Reportable 12/27/21 05:03 Sickle Cells Not Reportable 12/27/21 05:03 Target Cells Not Reportable 12/27/21 05:03 Tear Drop Cells 1+ 12/27/21 05:03 Ovalocytes Not Reportable 12/27/21 05:03 Helmet Cells Not Reportable 12/27/21 05:03 [place] Bodies Not Reportable 12/27/21 05:03 [place] Rings Not Reportable 12/27/21 05:03 [place] Cells Not Reportable 12/27/21 05:03 Bite Cells Not Reportable 12/27/21 05:03 Crenated Cell Not Reportable 12/27/21 05:03 Elliptocytes Not Reportable 12/27/21 05:03 Acanthocytes (Spur) Not Reportable 12/27/21 05:03 Rouleaux Not Reportable 12/27/21 05:03 Hemoglobin C Crystals Not Reportable 12/27/21 05:03 Schistocytes Not Reportable 12/27/21 05:03 Malaria parasites Not Reportable 12/27/21 05:03 Marvin Bodies Not Reportable 12/27/21 05:03 Hem Pathologist Commnt No 12/27/21 05:03 PT 12.9 Sec. (12.2-14.9) 12/23/21 13:55 INR 0.88 (0.87-1.13) 12/23/21 13:55 Sodium 140 mmol/L (137-145) 12/27/21 05:03 Potassium 3.6 mmol/L (3.6-5.0) 12/27/21 05:03 Chloride 108.3 mmol/L (98-107) H 12/27/21 05:03 Carbon Dioxide 23 mmol/L (22-30) 12/27/21 05:03 Anion Gap 12 mmol/L 12/27/21 05:03 BUN 10 mg/dL (7-17) 12/27/21 05:03 Creatinine 0.8 mg/dL (0.6-1.2) 12/27/21 05:03 Estimated GFR > 60 ml/min 12/27/21 05:03 BUN/Creatinine Ratio 13 % 12/27/21 05:03 Glucose 158 mg/dL (65-100) H 12/27/21 05:03 Lactic Acid 4.20 mmol/L (0.7-2.0) H* 12/23/21 13:09 Calcium 7.2 mg/dL (8.4-10.2) L 12/27/21 05:03 Total Bilirubin 0.50 mg/dL (0.1-1.2) 12/27/21 05:03 Direct Bilirubin 0.3 mg/dL (0-0.2) H 12/27/21 05:03 Indirect Bilirubin 0.2 mg/dL 12/27/21 05:03 AST 26 units/L (5-40) 12/27/21 05:03 ALT 38 units/L (7-56) 12/27/21 05:03 Alkaline Phosphatase 145 units/L (35-129) H 12/27/21 05:03 Total Protein 5.7 g/dL (6.3-8.2) L 12/27/21 05:03 Albumin 2.4 g/dL (3.9-5) L 12/27/21 05:03 Albumin/Globulin Ratio 0.7 % 12/27/21 05:03 Amylase 1154 units/L (27-131) H 12/25/21 07:43 Lipase 52 units/L (13-60) 12/27/21 05:03 Urine Color Laure (Yellow) 12/23/21 Unknown Urine Turbidity Clear (Clear) 12/23/21 Unknown Urine pH 5.0 (5.0-7.0) 12/23/21 Unknown Ur Specific [place] 1.035 (1.003-1.030) H 12/23/21 Unknown Urine Protein 30 mg/dl mg/dL (Negative) 12/23/21 Unknown Urine Glucose (UA) 50 mg/dL (Negative) 12/23/21 Unknown Urine Ketones Neg mg/dL (Negative) 12/23/21 Unknown Urine Blood Sm (Negative) 12/23/21 Unknown Urine Nitrite Neg (Negative) 12/23/21 Unknown Urine Bilirubin Neg (Negative) 12/23/21 Unknown Urine Urobilinogen < 2.0 mg/dL (<2.0) 12/23/21 Unknown Ur Leukocyte Esterase Tr (Negative) 12/23/21 Unknown Urine WBC (Auto) 8.0 /HPF (0.0-6.0) H 12/23/21 Unknown Urine RBC (Auto) 5.0 /HPF (0.0-6.0) 12/23/21 Unknown U Epithel Cells (Auto) < 1.0 /HPF (0-13.0) 12/23/21 Unknown Urine Mucus Few /HPF 12/23/21 Unknown Microbiology: Microbiology 12/23/21 13:33 Peripheral/Venous Blood Culture - Preliminary NO GROWTH AFTER 72 HOURS 12/23/21 13:09 Peripheral/Venous Blood Culture - Preliminary NO GROWTH AFTER 72 HOURS [place]/IV: Voiding Method Toilet Active Medications - Current Medications Current Medications: Generic Name Dose Route Start Last Admin Trade Name Freq PRN Reason Stop Dose Admin Acetaminophen 650 mg 12/23/21 21:23 Acetaminophen 325 Mg Tab PO Q4H PRN Pain MILD(1-3)/Fever >100.5/VELIZ Hydrocodone Bitart/Acetaminophen 1 each 12/26/21 09:17 Hydrocodone/Acetaminophen 5-325 Mg Tab PO Q4H PRN Pain, Moderate (4-6) Heparin Sodium (Porcine) 5,000 unit 12/23/21 22:00 12/27/21 06:03 Heparin 5,000 Unit/1 Ml Vial SUB-Q 5,000 unit Q8HR SYMONE Administration Piperacillin Sod/Tazobactam Sod 4.5 gm in 100 mls @ 200 mls/hr 12/24/21 09:00 12/27/21 08:47 Zosyn/Ns 4.5gm/100ml IV 200 mls/hr Q8H SYMONE Administration Sodium Chloride 1,000 mls @ 75 mls/hr 12/26/21 12:00 12/27/21 02:26 Nacl 0.45% 1000 Ml IV 75 mls/hr DIRECT SYMONE Administration Ketorolac Tromethamine 30 mg 12/23/21 17:00 12/27/21 08:47 Ketorolac 30 Mg/1 Ml Inj IV 12/28/21 16:59 30 mg Q8H SYMONE Administration Magnesium Hydroxide 30 ml 12/23/21 21:23 Magnesium Hydroxide (Mom) Oral Liqd Udc PO Q4H PRN Constipation Morphine Sulfate 2 mg 12/23/21 21:23 12/26/21 05:54 Morphine 2 Mg/1 Ml Inj IV 2 mg Q4H PRN Administration Pain , Severe (7-10) Ondansetron HCl 4 mg 12/23/21 21:23 12/24/21 00:21 Ondansetron 4 Mg/2 Ml Inj IV 4 mg Q8H PRN Administration Nausea And Vomiting Sodium Chloride 10 ml 12/23/21 22:00 12/27/21 10:28 Sodium Chloride 0.9% 10 Ml Flush Syringe IV 10 ml BID SYMONE Administration Sodium Chloride 10 ml 12/23/21 21:23 Sodium Chloride 0.9% 10 Ml Flush Syringe IV PRN PRN LINE FLUSH
[2021-12-27] MEDS: MORPHINE 2 MG/1 ML INJ IV PRN (15:26)
[2021-12-27] MEDS: HYDROcodone/ACETAMINOPHEN 5-325 MG TAB PO PRN ×2 (16:58→21:39)
[2021-12-28] MEDS: PIPERACIL/TAZOBACTA 4.5/NS 100 4.5 GM/100 ML VIAL IV SCH ×2 (00:13→09:12)
[2021-12-28] MEDS: KETOROLAC 30 MG/1 ML INJ IV SCH ×2 (00:13→09:11)
[2021-12-28] MEDS: HYDROcodone/ACETAMINOPHEN 5-325 MG TAB PO PRN (01:55)
[2021-12-28] MEDS: HEPARIN 5,000 UNIT/1 ML VIAL SUB-Q SCH ×2 (05:28→14:42)
[2021-12-28] MEDS: MORPHINE 2 MG/1 ML INJ IV PRN (05:28)
[2021-12-28 05:58] LABS: Hematocrit 34.6 % (30.3-42.9); Hemoglobin 10.8 gm/dl (10.1-14.3); Mean Corpuscular HGB Conc 31 % (30-34); Mean Corpuscular Volume 85 fl (79-97); Platelet Count 248 K/mm3 (140-440); Red Blood Count 4.09 M/mm3 (3.65-5.03); Red Cell Distribution Width 15.2 % (13.2-15.2)
[2021-12-28 06:11] LABS: Blood Urea Nitrogen 9 mg/dL (7-17); Calcium 7.6 mg/dL (8.4-10.2); Hemolysis Index 3
[2021-12-28 06:26] LABS: BUN/Creatinine Ratio 13
[2021-12-28 07:40] LABS: Anisocytosis 1+; Basophils % (Manual) 0 % (0.0-1.8); Platelet Estimate Consistent w Auto; Total Cells Counted 100
--- NOTE | 2021-12-28 11:59 | Discharge Summary ---
Providers - Providers Date of Admission: 12/23/21 21:23 Date of discharge: 12/28/21 Attending physician: JEREMI GROSSMAN 12/23/21 13:47 Consult to Physician [CONS] Urgent Comment: Consulting Provider: BIANKA BERG Physician Instructions: Reason For Exam: ABD PAIN Primary care physician: KRISTIAN RITTER Hospitalization Reason for admission: Gallstone pancreatitis Condition: Stable Hospital course: 1-year-old female presented through the emergency department with a chief complaint of abdominal pain. CT scan of the abdomen pelvis revealed acute pancreatitis. The patient was admitted with diagnosis below: Acute gallstone pancreatitis Cholelithiasis Abdominal pain Hospital course 12/25/2021. Continue to keep patient n.p.o. per surgery recommendations. Aggressive IV fluid hydration. Supportive care with pain and nausea control. Surgery reports that once the pancreatitis has improved, the patient will undergo cholecystectomy. 12/26/2021. Patient for laparoscopic cholecystectomy this morning. I discussed the case with surgery who reports patient tolerated the procedure well. Continue pain control, wound care and supportive care. Anticipate discharge in a.m. 12/27/2021. Patient is s/p laparoscopic cholecystectomy yesterday. I spoke with Dr. Berg who anticipated discharge today. However, patient with significant leukocytosis with WBC 20.8 patient does not appear to be toxic. Continue Zosyn for now. 12/28/2021. Patient with slight improvement of WBC at 18 K. We will discharge home with antibiotics of Augmentin. Patient patient continues to feel well and does not appear to be toxic/septic. Leukocytosis is likely stress-induced from pancreatitis/surgery. Patient is to follow-up as an outpatient. Dedicated discharge time 35 minutes Disposition: 01 HOME / SELF CARE / HOMELESS Final Discharge Diagnosis (Prints w/discharge instructions): Acute gallstone pancreatitis. Cholelithiasis. Abdominal pain Core Measure Documentation - Palliative Care Palliative Care/ Comfort Measures: Not Applicable - Core Measures Any of the following diagnoses?: none Exam - Constitutional Vitals: Temp Pulse Resp BP Pulse Ox 98.8 F 73 18 148/79 98 12/28/21 04:24 12/28/21 04:24 12/28/21 04:24 12/28/21 04:24 12/28/21 08:09 General appearance: Present: no acute distress, well-nourished - EENT Eyes: Present: PERRL ENT: hearing intact, clear oral mucosa - Neck Neck: Present: supple, normal ROM - Respiratory Respiratory effort: normal Respiratory: bilateral: CTA - Cardiovascular Heart Sounds: Present: S1 & S2. Absent: rub, click - Extremities Extremities: pulses symmetrical, No edema Peripheral Pulses: within normal limits - Abdominal General gastrointestinal: Present: soft, non-tender, non-distended, normal bowel sounds Female genitourinary: Present: normal - Integumentary Integumentary: Present: clear, warm, dry - Musculoskeletal Musculoskeletal: gait normal, strength equal bilaterally - Psychiatric Psychiatric: appropriate mood/affect, intact judgment & insight - Neurologic Neurologic: CNII-XII intact, moves all extremities Plan Activity: advance as tolerated Weight Bearing Status: Weight Bear as Tolerated Diet: regular Follow up with: KRISTIAN RITTER MD [Primary Care Provider] - 3-5 Days BIANKA BERG DO [Staff Physician] - 7 Days Prescriptions: Amoxicillin/K Clav Tab [Augmentin 875 mg] 1 tab PO Q12HR #14 tab HYDROcodone/APAP 5-325 [[place] 5-325 mg TAB] 1 each PO Q4H PRN #10 tablet PRN Reason: Pain, Moderate (4-6)
[2021-12-28 13:48] VITALS: BP 155/87
--- NOTE | 2021-12-28 14:39 | Progress Note ---
Assessment and Plan Postop day #1 status post laparoscopic cholecystectomy for gallstone pancreatitis. Patient is afebrile and stable and doing well, wbc trending down. Recommend continuing antibiotics, and hydration. OK to discharge today on oral abx. Can follow up in the office with Dr. Villanueva 7-10 days. Pt encouraged to return to ED with develops fever or increase abdominal pain. Subjective Date of service: 12/28/21 Narrative: No acute events overnight. Pt says she feels ok and is tolerating diet. Objective Vital Signs - 12hr 12/28/21 12/28/21 12/28/21 04:24 08:09 12:42 Temperature 98.8 F 97.4 F L Pulse Rate 73 78 Respiratory 18 22 Rate Blood Pressure 148/79 155/87 O2 Sat by Pulse 98 98 97 Oximetry - General physical appearance well developed, no distress, no pain - Eyes PERRL - Respiratory normal expansion, normal respiratory effort - Abdomen soft, other (incisions c/d/i, appropriately tender to palpation) - Labs 12/28/21 05:33 12/28/21 05:33 Diabetes panel 12/28/21 Range/Units 05:33 Sodium 140 (137-145) mmol/L Potassium 3.4 L (3.6-5.0) mmol/L Chloride 107.2 H (98-107) mmol/L Carbon Dioxide 24 (22-30) mmol/L BUN 9 (7-17) mg/dL Creatinine 0.7 (0.6-1.2) mg/dL Glucose 129 H (65-100) mg/dL Calcium 7.6 L (8.4-10.2) mg/dL Calcium panel 12/28/21 Range/Units 05:33 Calcium 7.6 L (8.4-10.2) mg/dL Pituitary panel 12/28/21 Range/Units 05:33 Sodium 140 (137-145) mmol/L Potassium 3.4 L (3.6-5.0) mmol/L Chloride 107.2 H (98-107) mmol/L Carbon Dioxide 24 (22-30) mmol/L BUN 9 (7-17) mg/dL Creatinine 0.7 (0.6-1.2) mg/dL Glucose 129 H (65-100) mg/dL Calcium 7.6 L (8.4-10.2) mg/dL Adrenal panel 12/28/21 Range/Units 05:33 Sodium 140 (137-145) mmol/L Potassium 3.4 L (3.6-5.0) mmol/L Chloride 107.2 H (98-107) mmol/L Carbon Dioxide 24 (22-30) mmol/L BUN 9 (7-17) mg/dL Creatinine 0.7 (0.6-1.2) mg/dL Glucose 129 H (65-100) mg/dL Calcium 7.6 L (8.4-10.2) mg/dL
== END 2021-12-28 15:00 | disposition home or self-care (01) | DRG 417 ==
LOC: ED 06:20 → 3A 21:23
PROVIDERS: ADMIT Internal Medicine Geriatric Medicine; ATTEND Hospitalist
PROC: 0FT44ZZ Resection of Gallbladder, Percutaneous Endoscopic Approach (ICD-10-PCS; principal; 2021-12-26)
DX: K80.20 Calculus of gallbladder without cholecystitis without obstruction (principal); K85.10 Biliary acute pancreatitis without necrosis or infection
CPT/HCPCS: 36415; 71045; 74177; 76705; 80048; 80053; 80076; 81001; 82140; 82150; 83690; 85007; 85025; 85027; 85610; 87040; 88304; G0378; J1815; J3490; J1100; J1170; J1644; J1885; J2270; J2405; J2543; J2704; J2710; J3010; J7030; J7120; Q9967